=== PATIENT | female | born 1960 | race Caucasian/White ===

== ENCOUNTER 2019-01-17 01:55 | Emergency (ER) | payer OTHER ==
[~2019-01-17] VITALS: Ht 162.6 cm; Wt 60.0 kg
[2019-01-17 02:02] VITALS: Ht 162.6 cm; Wt 60.0 kg
[2019-01-17 07:13] VITALS: BP 99/63; PULSE 66; RESP 17
--- NOTE | 2019-01-19 15:05 | ERD ---
ER Documentation Chief Complaint Chief Complaint jaundice worsening over past week. dx'd cirrosis 4wks ago. HPI This is a 58-year-old female with no significant past medical history brought in by her children for worsening jaundice and confusion. Patient was diagnosed with cirrhosis about 4 weeks ago. Her jaundice and symptoms have progressively and rapidly worsened over the past few weeks. They were seen by a GI doctor outpatient, Dr. Quinteros, who told him to go to [facility] ER if anything were to change. They noticed that there mom was a little more confused today than usual which is why they came to the emergency room. Patient currently states that she feels "tired" but does not have any other complaints. She denies any headache, vision disturbance, chest pain, shortness of breath, abdominal pain, dysuria. No hematochezia or melena. No nausea or vomiting. She does not take lactulose but was recently started on prednisone 2 days ago, for which the reason is unclear. ROS All systems reviewed and are negative except as per history of present illness. Medications Home Meds Reported Medications Furosemide* (Furosemide*) 40 Mg Tablet, 40 MG PO DAILY, TAB 01/19/19 Pantoprazole* (Pantoprazole*) 40 Mg Tablet.dr, 40 MG PO DAILY for 30 Days, #30 take 1 tablet by mouth once daily 01/19/19 Propranolol Hcl* (Propranolol Hcl*) 20 Mg Tablet, 20 MG PO DAILY for 30 Days, #60 take 1/2 tablet by mouth twice a day 01/19/19 Spironolactone* (Aldactone*) 25 Mg Tablet, 50 MG PO BID for 30 Days, #120 take 2 tablets by mouth twice a day 01/19/19 Prednisone* (Prednisone*) 20 Mg Tab, 40 MG PO DAILY for 30 Days, #60 take 2 tablets by mouth once daily 01/19/19 Allergies Allergies: Coded Allergies: Penicillins (Unverified Allergy, Unknown, 01/19/19) latex (Unverified Allergy, Unknown, 01/19/19) PMhx/Soc Medical and Surgical Hx: pt denies Surgical Hx Hx Miscellaneous Medical Probl: Yes (Cirrhosis of the liver) Hx Alcohol Use: Yes Hx Substance Use: No Hx Tobacco Use: No Smoking Status: Never smoker FmHx Family History: No diabetes Physical Exam Vitals Vital Signs Date Temp Pulse Resp B/P (MAP) Pulse Ox O2 O2 Flow FiO2 Time Delivery Rate 01/17/19 97.9 66 17 99/63 (75) 99 Room Air 07:13 01/17/19 64 17 107/64 99 Room Air 05:33 (78) 01/17/19 57 16 111/70 100 Room Air 03:57 (84) 01/17/19 97.9 65 18 113/72 99 02:02 (86) 01/17/19 57 15 113/72 100 Room Air 02:01 (86) Physical Exam Const: No acute distress, appears jaundiced, awake and alert Head: Atraumatic Eyes: Scleral icterus. PERRLA, EOMI ENT: Normal External Ears, Nose and Mouth. Neck: Full range of motion. No meningismus. No JVD Resp: Clear to auscultation bilaterally Cardio: Regular rate and rhythm, no murmurs Abd: Soft, distended with ascites. Nontender to palpation in all 4 quadrants. Normal bowel sounds Skin: Jaundiced. No petechiae or rashes Back: No midline or flank tenderness Ext: No cyanosis, or edema Neur: Awake and alert, oriented x3, normal speech, cranial nerves intact, strength and sensations intact in all 4 extremities Psych: Normal Mood and flat affect Result Diagram: 01/17/19 0300 01/17/19 0259 Results 24 hrs Laboratory Tests Test 01/17/19 02:59 01/17/19 03:00 01/17/19 04:13 Sodium Level 131 mmol/L Potassium Level 3.5 mmol/L Chloride Level 95 mmol/L Carbon Dioxide Level 24 mmol/L Anion Gap 12 Blood Urea Nitrogen 38 mg/dl Creatinine 1.25 mg/dl Est Glomerular Filtrat 44 mL/min Rate mL/min Glucose Level 122 mg/dl Calcium Level 9.6 mg/dl Total Bilirubin 12.2 mg/dl Direct Bilirubin 9.30 mg/dl Indirect Bilirubin 2.9 mg/dl Aspartate Amino Transf (AST/SGOT) 119 IU/L Alanine 32 IU/L Aminotransferase (ALT/SGPT) Alkaline Phosphatase 256 IU/L Total Protein 7.3 g/dl Albumin 3.1 g/dl Globulin 4.20 g/dl Albumin/Globulin Ratio 0.73 Lipase 704 U/L White Blood Count 24.1 10^3/ul Red Blood Count 4.10 10^6/ul Hemoglobin 13.8 g/dl Hematocrit 38.7 % Mean Corpuscular Volume 94.4 fl Mean Corpuscular Hemoglobin 33.7 pg Mean Corpuscular 35.7 g/dl Hemoglobin Concent Red Cell Distribution Width 14.8 % Platelet Count 272 10^3/UL Mean Platelet Volume 10.1 fl Immature Granulocytes % 1.600 % Neutrophils % 89.7 % Lymphocytes % 5.3 % Monocytes % 3.2 % Eosinophils % 0.0 % Basophils % 0.2 % Nucleated Red Blood Cells % 0.0 /100WBC Immature Granulocytes # 0.380 10^3/ul Neutrophils # 21.7 10^3/ul Lymphocytes # 1.3 10^3/ul Monocytes # 0.8 10^3/ul Eosinophils # 0.0 10^3/ul Basophils # 0.0 10^3/ul Nucleated Red Blood Cells # 0.0 10^3/ul Ammonia < 9 umol/l Urine Color ZAY Urine Clarity CLEAR Urine pH 6.0 Urine Specific [place] 1.014 Urine Ketones NEGATIVE mg/dL Urine Nitrite NEGATIVE mg/dL Urine Bilirubin 2+ mg/dL Urine Urobilinogen 2+ mg/dL Urine Leukocyte Esterase NEGATIVE Shant/ul Urine Hemoglobin NEGATIVE mg/dL Urine Glucose NEGATIVE mg/dL Urine Total Protein NEGATIVE mg/dl Procedures/MDM EMERGENT LABS AND DIAGNOSTIC STUDIES: Lab Results above were reviewed and interpreted by me. CBC: Leukocytosis, unclear etiology, may be secondary to infection versus steroid response. No thrombocytopenia or anemia CMP: Elevated BUN and creatinine, likely secondary to renal insufficiency of unknown chronicity. Evidence of liver disease. No evidence of electrolyte abnormality, renal failure, hypoglycemia Lipase: Slightly elevated, not consistent with pancreatitis Troponin within normal limits, not indicative of cardiac ischemia UA: no evidence of infection Initial Nursing notes reviewed. Previous Medical Records requested via the Electronic Health Record. EMERGENCY DEPARTMENT COURSE / MEDICAL DECISION MAKING: Patient is presenting with complaints of confusion that started today and worsening jaundice. Her vitals were all within normal limits upon arrival. She was afebrile with no signs of sepsis. There are no signs of acute surgical abdomen on exam. I doubt stroke or intracranial hemorrhage. I doubt meningitis or encephalitis. I suspected hepatic encephalopathy, however her ammonia level is low, but this still remains a possibility. There is no infectious source found on exam or workup. She was noted to have leukocytosis of unclear etiology. I explained to the patient and her family that this may be secondary to her recent steroid use versus an occult infection. The rest of her labs are consistent with her known cirrhosis. Her bilirubin is actually decreasing as her family reports her bilirubin last week was in the 30s. I suspect that she was probably started on the steroids to see if this would help with her c irrhosis, as the family states that they think it is due to alcohol but they cannot be sure until they do a biopsy. I offered the patient admission to the hospital for observation and further evaluation. However the patient would really like to go home as she feels well. Per her family at bedside, she has not been acting confused while she has been here and has been acting her normal self. I instructed them to return to the ER if they notice any concerning symptoms and their mother. I also recommended follow-up with her GI doctor first thing tomorrow morning. I provided them with a copy of the results from today and recommended the white blood cell count be trended outpatient. Strict return precautions given. Patient was discharged in stable condition. Patient's blood pressure was elevated (>120/80) but appears stable without evidence of hypertensive emergency or urgency. The patient was counseled about the risks of hypertension and urged to pursue outpatient monitoring and therapy within a week with their primary care physician. Departure Diagnosis: Primary Impression: Jaundice Additional Impressions: Confusion Renal insufficiency Cirrhosis Hepatic cirrhosis type: unspecified hepatic cirrhosis Ascites presence: with ascites Qualified Codes: K74.60 - Unspecified cirrhosis of liver; R18.8 - Other ascites Leukocytosis, unspecified Condition: Stable Patient Instructions: Jaundice (Adult), Confusion Additional Instructions: Follow-up with your psychiatric secretary on Friday. If any of your symptoms worsen, return to the ER immediately. KARISSA WORTHY MD Jan 19, 2019 15:05
== END 2019-01-17 07:13 | disposition home or self-care (01) ==
LOC: E/R 01:55
DX: R41.0 Disorientation, unspecified (principal); N28.9 Disorder of kidney and ureter, unspecified; D72.829 Elevated white blood cell count, unspecified; K74.60 Unspecified cirrhosis of liver
CPT/HCPCS: 36415; 80053; 81003; 82140; 83690; 85025; 99283

== ENCOUNTER 2019-01-18 21:56 | Observation (INO) | payer OTHER ==
[~2019-01-18] VITALS: Ht 165.1 cm; Wt 54.7 kg
[2019-01-19] VITALS (8 sets, daily range): BP systolic 95–136; BP diastolic 55–66; PULSE 65–81; RESP 16–20; Ht 165.1 cm; Wt 54.7 kg
[2019-01-19] MEDS ORDERED: ONDANSETRON 4 MG INJ IV PRN (02:00)
--- NOTE | 2019-01-19 02:28 | ERD ---
ER Documentation Chief Complaint Chief Complaint bib self, cc: cirrosis of liver, jaundice, needs tap HPI This is a 58-year-old female here with complaints of cirrhosis of liver and increase in his abdominal girth over the past 3-4 days. Patient has history of cirrhosis. No nausea no vomiting no fevers no chest pain ROS All systems reviewed and are negative except as per history of present illness. Allergies Allergies: Coded Allergies: Penicillins (Verified Allergy, Unknown, 01/17/19) latex (Verified Allergy, Unknown, 01/17/19) PMhx/Soc History of Surgery: No Anesthesia Reaction: No Hx Neurological Disorder: No Hx Respiratory Disorders: No Hx Cardiac Disorders: No Hx Psychiatric Problems: No Hx Miscellaneous Medical Probl: Yes (CIRRHOSIS) Hx Alcohol Use: No Hx Substance Use: No Hx Tobacco Use: No Smoking Status: Never smoker Physical Exam Vitals Vital Signs Date Temp Pulse Resp B/P (MAP) Pulse Ox O2 O2 Flow FiO2 Time Delivery Rate 01/19/19 97.0 62 14 134/72 100 2.0 00:19 (92) 01/18/19 97.0 68 19 120/56 100 22:10 (77) Physical Exam Const: No acute distress Head: Atraumatic Eyes: Normal Conjunctiva ENT: Normal External Ears, Nose and Mouth. Neck: Full range of motion. No meningismus. Resp: Clear to auscultation bilaterally Cardio: Regular rate and rhythm, no murmurs Abd: Soft, non tender, non distended. Normal bowel sounds Skin: No petechiae or rashes Back: No midline or flank tenderness Ext: No cyanosis, or edema Neur: Awake and alert Psych: Normal Mood and Affect Result Diagram: 01/19/19 0030 01/19/19 0030 Results 24 hrs Laboratory Tests Test 01/19/19 00:30 White Blood Count 27.6 10^3/ul Red Blood Count 3.72 10^6/ul Hemoglobin 12.7 g/dl Hematocrit 36.4 % Mean Corpuscular Volume 97.8 fl Mean Corpuscular Hemoglobin 34.1 pg Mean Corpuscular Hemoglobin Concent 34.9 g/dl Red Cell Distribution Width 15.3 % Platelet Count 266 10^3/UL Mean Platelet Volume 10.4 fl Immature Granulocytes % 1.900 % Neutrophils % % Segmented Neutrophils % (Manual) 91 % Band Neutrophils % (Manual) 1 % Lymphocytes % % Lymphocytes % (Manual) 4 % Monocytes % % Monocytes % (Manual) 2 % Eosinophils % % Basophils % % Basophils % (Manual) 1 % Metamyelocytes % (manual) 1 % Nucleated Red Blood Cells % 0.0 /100WBC Immature Granulocytes # 0.530 10^3/ul Neutrophils # 10^3/ul Neutrophils # (Manual) 25.2 10^3/ul Band Neutrophils # 0.2 10^3/ul Lymphocytes (Manual) 1.1 10^3/ul Lymphocytes # 10^3/ul Monocytes # 10^3/ul Monocytes # (Manual) 0.5 10^3/ul Eosinophils # 10^3/ul Basophils # 10^3/ul Basophils # (Manual) 0.2 10^3/ul Metamyelocytes # 0.2 10^3/ul Nucleated Red Blood Cells # 10^3/ul Platelet Estimate NORMAL Poikilocytosis 1+ Anisocytosis 3+ Macrocytosis 3+ Prothrombin Time 15.8 Sec Prothrombin Time Ratio 1.2 INR International Normalized Ratio 1.25 Activated Partial Thromboplast Time 31.1 Sec Sodium Level 132 mmol/L Potassium Level 3.6 mmol/L Chloride Level 95 mmol/L Carbon Dioxide Level 22 mmol/L Anion Gap 15 Blood Urea Nitrogen 36 mg/dl Creatinine 1.31 mg/dl Est Glomerular Filtrat Rate mL/min 42 mL/min Glucose Level 137 mg/dl Calcium Level 9.2 mg/dl Total Bilirubin 9.8 mg/dl Direct Bilirubin 7.20 mg/dl Indirect Bilirubin 2.6 mg/dl Aspartate Amino Transf (AST/SGOT) 101 IU/L Alanine Aminotransferase (ALT/SGPT) 44 IU/L Alkaline Phosphatase 266 IU/L Total Protein 7.5 g/dl Albumin 3.2 g/dl Globulin 4.30 g/dl Albumin/Globulin Ratio 0.74 Lipase 1057 U/L Current Medications Medications Dose Sig/Jerrica Start Time Status Last (Trade) Ordered Route PRN Stop Time Admin Dose Reason Admin Lactulose 20 gm TID PO 01/19/19 (Enulose) 09:00 Ondansetron 4 mg Q6 PRN IV 01/19/19 HCl (Zofran NAUSEA 02:00 Inj) 50 mg ONCE ONCE 01/19/19 Spironolacton PO 02:30 01/19/19 e 02:31 (Aldactone) Furosemide 20 mg ONCE ONCE 01/19/19 (Lasix) IV 02:30 01/19/19 02:31 500 mg ONCE ONCE 01/19/19 UNV Levofloxacin PO 02:30 01/19/19 (Levaquin) 02:31 Procedures/MDM Medical decision makin-year-old female comes in here with increasing abdominal girth necessitating a likely paracentesis. Patient will be admitted to Dr. Fitzpatrick of [facility] who will coordinate care. Departure Diagnosis: Primary Impression: Ascites Ascites type: due to alcoholic cirrhosis Qualified Codes: K70.31 - Alcoholic cirrhosis of liver with ascites Condition: Serious ANGEL WHITESIDE Jan 19, 2019 02:28
[2019-01-19] MEDS ORDERED: SPIRONOLACTONE 50 MG TAB PO ONE ×2 (02:30→05:00)
[2019-01-19] MEDS ORDERED: LEVOFLOXACIN 500 MG TAB PO ONE (02:30)
[2019-01-19] MEDS ORDERED: FUROSEMIDE 20 MG INJ IV ONE (02:30)
[2019-01-19] MEDS ORDERED: PROP20TA4 PO (02:53)
[2019-01-19] MEDS ORDERED: SPIR25TA PO (02:53)
[2019-01-19] MEDS ORDERED: PRED20TA PO (02:53)
[2019-01-19] MEDS ORDERED: PANT40TA4 PO (02:53)
[2019-01-19] MEDS ORDERED: FURO40TA4 PO (02:57)
[2019-01-19] MEDS ORDERED: LIDOCAINE 1% (MPF) 5 ML VIAL ONE (08:28)
[2019-01-19] MEDS ORDERED: PROPRANOLOL 20 MG TAB PO SCH ×2 (09:00→10:30)
[2019-01-19] MEDS ORDERED: PANTOPRAZOLE (EC) 40 MG TAB PO SCH (09:30)
--- NOTE | 2019-01-19 10:05 | HP ---
DATE OF ADMISSION: 01/19/2019 CHIEF COMPLAINT: Recurrent ascites. HISTORY OF PRESENT ILLNESS: A 58-year-old female with recently diagnosed cirrhosis and ascites, pres ented to emergency room with complaint of recurrent ascites and abdominal discomfort. The patient de nies any abdominal pain. Her symptoms were mainly related to recurrent ascites. She denies fever, c hills, nausea or vomiting. Patient was seen in the emergency room 2 days prior to admission. Initia l evaluation revealed lipase of 1072. Total bilirubin was 9.3. The patient was noted to have large ascites. She underwent paracentesis and 4.6 liters of fluid was retrieved. White blood cell count on admission was 27.6, repeat white blood cell count the following morning was 22.8. Patient admits to drinking 1 to 2 glasses of wine on a daily basis for several years. PAST MEDICAL HISTORY: 1. Alcoholic liver disease. 2. Ascites. PAST SURGICAL HISTORY: Status post breast implants. MEDICATIONS PRIOR TO ADMISSION: 1. Propranolol 20 mg daily. 2. Spironolactone 25 mg b.i.d. 3. Lasix 40 mg daily. 4. Protonix 40 mg daily. 5. Prednisone 40 mg daily. PHYSICAL EXAMINATION: GENERAL: Well-developed, well-nourished, thin female who is in no apparent distress. VITAL SIGNS: Stable. She is afebrile. HEENT: Extraocular muscles intact. Pupils equal and reactive to light bilaterally. Sclerae icteric . Oropharynx is clear. LUNGS: Clear to auscultation bilaterally. CARDIAC: Regular rate and rhythm. No murmurs, or gallops. ABDOMEN: Soft, mildly distended, nontender, normoactive bowel sounds. EXTREMITIES: No clubbing, cyanosis, or edema. NEUROLOGICAL: Grossly nonfocal. ASSESSMENT: 1. A 58-year-old female with recurrent ascites. 2. Status post paracentesis with removal of 4.6 liters of fluid. 3. Elevated lipase, rule out pancreatitis. 4. Rule out spontaneous bacterial peritonitis. 5. Hypokalemia. PLAN: 1. Place in Med/Surg observation. Resume home medications including diuretics. 2. Check peritoneal fluid for Gram stain, cell count and LVH. 3. GI consultation was requested. Condition and prognosis were discussed with the patient's children. All of their questions were answ ered to the best of my knowledge. Dictated By: RACHEL BASS/CHESTER Conf#: [id number] [facility]#: [id number] CC: BRYNN BEAVER;*EndCC*
[2019-01-19] MEDS: FUROSEMIDE 40 MG TAB PO SCH (10:25)
[2019-01-19] MEDS: PANTOPRAZOLE (EC) 40 MG TAB PO SCH (10:25)
[2019-01-19] MEDS: LACTULOSE 30ML CUP PO SCH ×3 (10:25→20:59)
[2019-01-19] MEDS: SPIRONOLACTONE 25 MG TAB PO SCH ×2 (10:30→21:00)
--- NOTE | 2019-01-19 11:05 | CONS ---
Assessment/Plan Assessment/Plan Hospital Course (Demo Recall) Summary Assessment and Plan: Assessment: Direct hyperbilirubinemia Elevated LFTS with AST>ALT Alcoholic liver cirrhosis with ascites -Recently dx -Last alcoholic drink 6 weeks ago- Leukocytosis -R/o SBP vbs other Elevated lipase Renal insufficiency Plan: Keep NPO today- will also order amylase MRCP to r/o CBD obstruction S/p paracentesis- to R/o SBP Serology negative for Hepatitis Continue current medication regimen- titrate Bm to 3-4 in 24/hr Monitor labs Patient seen in collaboration with Dr. Rivera CC: MAGNOLIA RIVERA ; Consultation Date/Type/Reason Admit Date/Time Jan 19, 2019 at 01:44 Date of Consultation: Jan 19, 2019 Type of Consult GI Reason for Consultation ALD, with direct hyperbilirubinemia Elevated lipase Date/Time of Note DATE: 01/19/19 TIME: 10:20 Hx of Present Illness This a 58-year-old female with recently diagnosed liver cirrhosis secondary to alcohol use that presented to the hospital with complaints of progressive abdominal girth and jaundice which she is status post paracentesis with fluid negative for SBP, Labs note leukocytosis, normocytic anemia, normal platelet function, and mildly elevated INR of 1.25, direct hyperbilirubinemia, and elevated LFTs AST>ALT. A chest x-ray was obtained and is negative for cardiopulmonary disease is negative for UTI. WE will plan to order MRCP to r/o CBD, will also assess amylase, as lipase is elevated in the setting of mildly elevated CR. Currently she denies any abd pain, nausea or vomiting. Her last alcoholic drink was about 6 weeks ago. Pt state she is under the care of Dr. Aldair BRENNAN. Review of Systems: A 12 system, review was conducted and is negative except as noted in the HPI or here. Past Medical History Home Meds Reported Medications Furosemide* (Furosemide*) 40 Mg Tablet, 40 MG PO DAILY, TAB 01/19/19 Pantoprazole* (Pantoprazole*) 40 Mg Tablet., 40 MG PO DAILY for 30 Days, #30 take 1 tablet by mouth once daily 01/19/19 Propranolol Hcl* (Propranolol Hcl*) 20 Mg Tablet, 20 MG PO DAILY for 30 Days, #60 take 1/2 tablet by mouth twice a day 01/19/19 Spironolactone* (Aldactone*) 25 Mg Tablet, 50 MG PO BID for 30 Days, #120 take 2 tablets by mouth twice a day 01/19/19 Prednisone* (Prednisone*) 20 Mg Tab, 40 MG PO DAILY for 30 Days, #60 take 2 tablets by mouth once daily 01/19/19 Medications Current Medications Lactulose (Enulose) 20 gm TID PO ; Start 01/19/19 at 09:00 Ondansetron HCl (Zofran Inj) 4 mg Q6 PRN IV NAUSEA; Start 01/19/19 at 02:00 Pantoprazole (Protonix Tab) 40 mg DAILY PO ; Start 01/19/19 at 09:00 Potassium Chloride (Klor-Con 10) 30 meq BID PO ; Start 01/19/19 at 10:30; Stop 01/20/19 at 23:59 Furosemide (Lasix) 40 mg DAILY PO ; Start 01/19/19 at 09:30 Spironolactone (Aldactone) 50 mg BID PO ; Start 01/19/19 at 10:30 Propranolol HCl (Inderal) 20 mg BID PO ; Start 01/19/19 at 12:00 Allergies: Coded Allergies: Penicillins (Unverified Allergy, Unknown, 01/19/19) latex (Unverified Allergy, Unknown, 01/19/19) Social History Smoking Status: Never smoker Exam/Review of Systems Exam Vitals Vital Signs Date Temp Pulse Resp B/P (MAP) Pulse Ox O2 O2 Flow FiO2 Time Delivery Rate 01/19/19 65 18 112/55 100 Nasal 2.0 08:30 (74) Cannula 01/19/19 97.5 07:28 Exam PHYSICAL EXAMINATION: GENERAL: Jaundice, alert & oriented x 3, in no acute distress SKIN: No lesions EYES: Pupils equal reactive to light, no discharge. EARS/NOSE AND THROAT: Ears normal, nose normal NECK: Supple, no masses CHEST: Inspection within normal limits. CARDIOVASCULAR: Heart: Regular rate and rhythm RESPIRATORY: Lungs clear to auscultation GASTROINTESTINAL AND LIVER: Abdomen: Soft, non tenderness, + distended, no hernias, no masses, no organomegaly, + ascites, no guarding, no rebound tenderness, normoactive bowel sounds. Rectal: Deferred. Results Result Diagram: 01/19/19 0911 01/19/19 0438 Results 24hrs Laboratory Tests Test 01/19/19 00:30 01/19/19 01:00 01/19/19 04:38 01/19/19 09:11 White Blood Count 27.6 H 22.8 H 21.7 H Red Blood Count 3.72 L 3.63 L 3.37 L Hemoglobin 12.7 12.4 11.7 L Hematocrit 36.4 L 35.3 L 32.7 L Mean Corpuscular Volume 97.8 97.2 97.0 Mean Corpuscular 34.1 H 34.2 H 34.7 H Hemoglobin Mean Corpuscular 34.9 35.1 35.8 Hemoglobin Concent Red Cell Distribution 15.3 H 15.1 H 15.1 H Width Platelet Count 266 238 205 Mean Platelet Volume 10.4 10.5 H 10.0 Immature Granulocytes % 1.900 H 1.400 H 1.400 H Neutrophils % 87.1 H 84.9 H Segmented Neutrophils 91 H % (Manual) Band Neutrophils % 1 (Manual) Lymphocytes % 6.9 L 8.5 L Lymphocytes % (Manual) 4 L Monocytes % 4.2 4.8 Monocytes % (Manual) 2 Eosinophils % 0.0 0.1 Basophils % 0.4 0.3 Basophils % (Manual) 1 Metamyelocytes % 1 H (manual) Nucleated Red Blood 0.0 0.0 0.0 Cells % Immature Granulocytes # 0.530 H 0.310 H 0.300 H Neutrophils # 19.9 H 18.4 H Neutrophils # (Manual) 25.2 H Band Neutrophils # 0.2 Lymphocytes (Manual) 1.1 Lymphocytes # 1.6 1.8 Monocytes # 1.0 H 1.0 H Monocytes # (Manual) 0.5 Eosinophils # 0.0 0.0 Basophils # 0.1 0.1 Basophils # (Manual) 0.2 H Metamyelocytes # 0.2 H Nucleated Red Blood 0.0 0.0 Cells # Platelet Estimate NORMAL Poikilocytosis 1+ Anisocytosis 3+ Macrocytosis 3+ Prothrombin Time 15.8 H Prothrombin Time Ratio 1.2 INR International 1.25 Normalized Ratio Activated 31.1 Partial Thromboplast Time Sodium Level 132 L 134 L Potassium Level 3.6 3.1 L Chloride Level 95 L 94 L Carbon Dioxide Level 22 25 Anion Gap 15 H 15 H Blood Urea Nitrogen 36 H 35 H Creatinine 1.31 H 1.23 H Est Glomerular Filtrat 42 L 45 L Rate mL/min Glucose Level 137 95 # Calcium Level 9.2 9.3 Total Bilirubin 9.8 #H 9.3 H Direct Bilirubin 7.20 H 6.60 H Indirect Bilirubin 2.6 H 2.7 H Aspartate Amino 101 H 95 H Transf (AST/SGOT) Alanine 44 44 Aminotransferase (ALT/SG PT) Alkaline Phosphatase 266 H 252 H Total Protein 7.5 7.2 Albumin 3.2 L 3.1 L Globulin 4.30 H Albumin/Globulin Ratio 0.74 Lipase 1057 H 1072 H Hepatitis B Surface NEGATIVE Antigen Hepatitis B Core NEGATIVE Total Antibody Hepatitis C Antibody NEGATIVE Medications Medication Current Medications Lactulose (Enulose) 20 gm TID PO ; Start 01/19/19 at 09:00 Ondansetron HCl (Zofran Inj) 4 mg Q6 PRN IV NAUSEA; Start 01/19/19 at 02:00 Pantoprazole (Protonix Tab) 40 mg DAILY PO ; Start 01/19/19 at 09:00 Potassium Chloride (Klor-Con 10) 30 meq BID PO ; Start 01/19/19 at 10:30; Stop 01/20/19 at 23:59 Furosemide (Lasix) 40 mg DAILY PO ; Start 01/19/19 at 09:30 Spironolactone (Aldactone) 50 mg BID PO ; Start 01/19/19 at 10:30 Propranolol HCl (Inderal) 20 mg BID PO ; Start 01/19/19 at 12:00 GARY INMAN Jan 19, 2019 10:30
[2019-01-19] MEDS: PROPRANOLOL 20 MG TAB PO SCH ×2 (12:00→21:00)
[2019-01-19] MEDS: POTASSIUM CHLORIDE (SR) 10 MEQ TAB PO SCH ×2 (12:07→21:02)
[2019-01-20 02:00] VITALS: BP 101/58; PULSE 80; RESP 18
[2019-01-20 07:49] VITALS: BP 99/60; PULSE 87; RESP 18
[2019-01-20] MEDS: POTASSIUM CHLORIDE (SR) 10 MEQ TAB PO SCH (08:12)
[2019-01-20] MEDS: LACTULOSE 30ML CUP PO SCH ×2 (08:12→13:00)
[2019-01-20] MEDS: PANTOPRAZOLE (EC) 40 MG TAB PO SCH (08:13)
[2019-01-20 09:52] VITALS: BP 111/53; PULSE 99; RESP 16
[2019-01-20] MEDS: SPIRONOLACTONE 25 MG TAB PO SCH (10:00)
[2019-01-20] MEDS: FUROSEMIDE 40 MG TAB PO SCH (10:00)
[2019-01-20] MEDS: PROPRANOLOL 20 MG TAB PO SCH (10:00)
[2019-01-20] MEDS ORDERED: LEVO500T10 PO (10:40)
[2019-01-20] MEDS ORDERED: LACT20SO2 PO (10:40)
--- NOTE | 2019-01-20 10:41 | PDOCDIS ---
Discharge Instructions CONDITION [id number] Patient Condition: [id number] Good HOME CARE INSTRUCTIONS: [id number] Diet Instructions: [id number] FOLLOW UP/APPOINTMENTS Follow-up Plan pcp [address] Quinteros 1 week RACHEL WIGGINS MD Jan 20, 2019 10:41
--- NOTE | 2019-01-20 13:44 | PN ---
Date/Time of Note Date/Time of Note DATE: 01/20/19 TIME: 13:40 Assessment/Plan VTE Prophylaxis Risk score (from Ns)>0 risk: 2 SCD applied (from Ns): No SCD contraindicated: other (scds) Pharmacological prophylaxis: other (scds) Lines/Catheters IV C[facility]ter Type (from [facility]): Saline Lock Assessment/Plan Hospital Course Summary Assessment and Plan: Assessment: Direct hyperbilirubinemia Elevated LFTS with AST>ALT Alcoholic liver cirrhosis with ascites -Recently dx -Last alcoholic drink 6 weeks ago- Leukocytosis -R/o SBP vs other -Paracentesis neg for SBP, CXR - neg -Likely 2/2 to recent steroid use Elevated lipase- trending down -MRCP shows unremarkable pancreas Renal insufficiency Plan: Ok to d/c from GI point of view Pt to f/u with her GI physician Dr. Quinteros 1 week Patient seen in collaboration with Dr. Landon/Kvng Subjective: Course reviewed with nursing staff Patient interviewed and examined All labs, imaging and other results reviewed The patient feels well no c/o abd pain Nausea or vomiting. Pt ready to go home PHYSICAL EXAMINATION: GENERAL: Jaundice, alert & oriented x 3, in no acute distress SKIN: No lesions EYES: Pupils equal reactive to light, no discharge. EARS/NOSE AND THROAT: Ears normal, nose normal NECK: Supple, no masses CHEST: Inspection within normal limits. CARDIOVASCULAR: Heart: Regular rate and rhythm RESPIRATORY: Lungs clear to auscultation GASTROINTESTINAL AND LIVER: Abdomen: Soft, non tenderness, + distended, no hernias, no masses, no organomegaly, + ascites, no guarding, no rebound tenderness, normoactive bowel sounds. Rectal: Deferred. Result Diagram: 01/20/19 0439 01/20/19 0439 Results 24hrs Laboratory Tests Test 01/20/19 04:39 White Blood Count 20.8 H Red Blood Count 3.59 L Hemoglobin 12.2 Hematocrit 35.1 L Mean Corpuscular Volume 97.8 Mean Corpuscular Hemoglobin 34.0 H Mean Corpuscular Hemoglobin Concent 34.8 Red Cell Distribution Width 15.5 H Platelet Count 207 Mean Platelet Volume 10.4 Immature Granulocytes % 1.300 H Neutrophils % 87.7 H Lymphocytes % 5.7 L Monocytes % 4.8 Eosinophils % 0.1 Basophils % 0.4 Nucleated Red Blood Cells % 0.0 Immature Granulocytes # 0.260 H Neutrophils # 18.2 H Lymphocytes # 1.2 Monocytes # 1.0 H Eosinophils # 0.0 Basophils # 0.1 Nucleated Red Blood Cells # 0.0 Sodium Level 139 Potassium Level 4.2 Chloride Level 105 # Carbon Dioxide Level 23 Anion Gap 11 Blood Urea Nitrogen 33 H Creatinine 1.24 H Est Glomerular Filtrat Rate mL/min 45 L Glucose Level 83 Calcium Level 9.2 Total Bilirubin 9.1 H Direct Bilirubin 6.70 H Indirect Bilirubin 2.4 H Aspartate Amino Transf (AST/SGOT) 130 H Alanine Aminotransferase (ALT/SGPT) 49 Alkaline Phosphatase 232 H Total Protein 6.0 #L Albumin 2.6 L Lipase 575 H Exam/Review of Systems Exam Vitals Vital Signs Date Temp Pulse Resp B/P (MAP) Pulse Ox O2 O2 Flow FiO2 Time Delivery Rate 01/20/19 99 16 111/53 09:52 (72) 01/20/19 97.9 92 Room Air 07:49 01/20/19 2.0 02:00 Intake and Output 01/19/19 01/19/19 01/20/19 1515:00 23:00 07:00 OutputOutput Total 4600 ml BalanceBalance -4600 ml Results Results 24hrs Laboratory Tests Test 01/20/19 04:39 White Blood Count 20.8 H Red Blood Count 3.59 L Hemoglobin 12.2 Hematocrit 35.1 L Mean Corpuscular Volume 97.8 Mean Corpuscular Hemoglobin 34.0 H Mean Corpuscular Hemoglobin Concent 34.8 Red Cell Distribution Width 15.5 H Platelet Count 207 Mean Platelet Volume 10.4 Immature Granulocytes % 1.300 H Neutrophils % 87.7 H Lymphocytes % 5.7 L Monocytes % 4.8 Eosinophils % 0.1 Basophils % 0.4 Nucleated Red Blood Cells % 0.0 Immature Granulocytes # 0.260 H Neutrophils # 18.2 H Lymphocytes # 1.2 Monocytes # 1.0 H Eosinophils # 0.0 Basophils # 0.1 Nucleated Red Blood Cells # 0.0 Sodium Level 139 Potassium Level 4.2 Chloride Level 105 # Carbon Dioxide Level 23 Anion Gap 11 Blood Urea Nitrogen 33 H Creatinine 1.24 H Est Glomerular Filtrat Rate mL/min 45 L Glucose Level 83 Calcium Level 9.2 Total Bilirubin 9.1 H Direct Bilirubin 6.70 H Indirect Bilirubin 2.4 H Aspartate Amino Transf (AST/SGOT) 130 H Alanine Aminotransferase (ALT/SGPT) 49 Alkaline Phosphatase 232 H Total Protein 6.0 #L Albumin 2.6 L Lipase 575 H Medications Medication Current Medications Lactulose (Enulose) 20 gm TID PO Last administered on 01/20/19 08:12; Admin Dose 20 GM; Start 01/19/19 at 09:00 Ondansetron HCl (Zofran Inj) 4 mg Q6 PRN IV NAUSEA; Start 01/19/19 at 02:00 Pantoprazole (Protonix Tab) 40 mg DAILY PO Last administered on 01/20/19 08:13; Admin Dose 40 MG; Start 01/19/19 at 09:00 Potassium Chloride (Klor-Con 10) 30 meq BID PO Last administered on 01/20/19 08:12; Admin Dose 30 MEQ; Start 01/19/19 at 10:30; Stop 01/20/19 at 23:59 Furosemide (Lasix) 40 mg DAILY PO Last administered on 01/20/19 10:00; Admin Dose 40 MG; Start 01/19/19 at 09:30 Spironolactone (Aldactone) 50 mg BID PO Last administered on 01/20/19 10:00; Ad min Dose 50 MG; Start 01/19/19 at 10:30 Propranolol HCl (Inderal) 20 mg BID PO Last administered on 01/20/19 10:00; Admin Dose 20 MG; Start 01/19/19 at 12:00 GARY INMAN Jan 20, 2019 13:44
== END 2019-01-20 14:35 | disposition home health service (06) ==
LOC: E/R 21:56 → 2NE 01-19 01:44 → EDBEDREQSVC 01-19 02:14
PROVIDERS: ADMIT Internal Medicine; ATTEND Internal Medicine
DX: K70.31 Alcoholic cirrhosis of liver with ascites (principal); R74.8 Abnormal levels of other serum enzymes; E87.6 Hypokalemia; N28.9 Disorder of kidney and ureter, unspecified
CPT/HCPCS: 36415; 49083; 71045; 74181; 76700; 80048; 80053; 80076; 82042; 82150; 83615; 83690; 84157; 85025; 85610; 85730; 86704; 86709; 86803; 87070; 87081; 87102; 87116; 87340; 88104; 88305; 89051; 99285; G0378; J1940; J2405

== ENCOUNTER 2019-01-28 16:23 | Inpatient (IN) | payer OTHER ==
[~2019-01-28] VITALS: Ht 165.1 cm; Wt 51.0 kg
[~2019-01-28 16:23] MED LIST: FURO40TA4 PO; LACT20SO2 PO; LEVO500T10 PO; PANT40TA4 PO; PRED20TA PO; PROP20TA4 PO; SPIR25TA PO
--- NOTE | 2019-01-28 16:54 | ERD ---
ER Documentation Chief Complaint Chief Complaint WEAKNESS AND ALOC TODAY HPI 58-year-old female with a history of alcoholic liver cirrhosis, hepatic encephalopathy and recurrent ascites presents to the ED with family for evaluation of generalized weakness and confusion. Patient was seen earlier this afternoon by gastroenterology, Dr. Quinteros and referred to the ED for further evaluation. History is supplemented by the patient's family who are at the bedside Patient is sometimes noncompliant with her lactulose. Denies heada giorgio, visual changes, focal weakness or numbness. No chest pain, palpitations or shortness of breath. Mild abdominal distention but no pain, nausea, vomiting, hematemesis, hematochezia or melena. No URI symptoms, cough or sputum production. No fevers or chills. ROS All systems reviewed and are negative except as per history of present illness. Medications Home Meds Active Scripts Lactulose* (Lactulose*) 20 Gm/30 Ml Solution, 20 GM PO QID for 30 Days, 3 Refills Prov:RACHEL WIGGINS MD 01/29/19 Reported Medications Lactulose* (Lactulose*) 10 Gm/15 Ml Solution, 30 ML PO QID, ML 01/28/19 Furosemide* (Furosemide*) 40 Mg Tablet, 40 MG PO DAILY, TAB 01/19/19 Spironolactone* (Aldactone*) 25 Mg Tablet, 50 MG PO BID for 30 Days, #120 take 2 tablets by mouth twice a day 01/19/19 Prednisone* (Prednisone*) 20 Mg Tab, 15 MG PO DAILY for 30 Days, #60 take 2 tablets by mouth once daily 01/19/19 Discontinued Reported Medications Pantoprazole* (Pantoprazole*) 40 Mg Tablet.dr, 40 MG PO DAILY for 30 Days, #30 take 1 tablet by mouth once daily 01/19/19 Propranolol Hcl* (Propranolol Hcl*) 20 Mg Tablet, 20 MG PO DAILY for 30 Days, #60 take 1/2 tablet by mouth twice a day 01/19/19 Discontinued Scripts Levofloxacin* (Levofloxacin*) 500 Mg Tablet, 500 MG PO DAILY for 5 Days, TAB Prov:RACHEL WIGGINS MD 01/20/19 Lactulose* (Lactulose*) 20 Gm/30 Ml Solution, 10 GM PO TID for 30 Days Prov:RACHEL WIGGINS MD 01/20/19 Allergies Allergies: Coded Allergies: Penicillins (Unverified Allergy, Unknown, 01/28/19) latex (Unverified Allergy, Unknown, 01/28/19) PMhx/Soc Reviewed in chart. As per HPI. History of Surgery: Yes (BREAST AUGMENTATION 2009) Anesthesia Reaction: No Hx Neurological Disorder: No Hx Respiratory Disorders: No Hx Cardiac Disorders: No Hx Psychiatric Problems: No Hx Miscellaneous Medical Probl: Yes (Liver cirrhosis, encephalopathy) Hx Alcohol Use: Yes Hx Substance Use: No Hx Tobacco Use: No FmHx No stroke or cancer. No family history relevant to presenting complaint Physical Exam Vitals Vital Signs Date Temp Pulse Resp B/P (MAP) Pulse Ox O2 O2 Flow FiO2 Time Delivery Rate 01/28/19 97.8 67 16 89/54 (66) 100 Room Air 19:10 01/28/19 88 20 94/64 (74) 97 Room Air 18:06 01/28/19 98.5 61 16 103/56 100 16:33 (72) Physical Exam Const: Moderate distress Head: Atraumatic Eyes: anicteric. Conjunctiva not injected. ENT: Normal External Ears, Nose and Mouth. Neck: Full range of motion. No meningismus. No JVD. Carotids 2+ bilateral without bruits. Resp: Breath sounds are mildly diminished at the bases but otherwise clear to auscultation bilaterally. No rales rhonchi or wheezes. Cardio: Regular rate and rhythm, no murmurs Abd: Soft, non tender, mild distention. Positive fluid wave. No rebound or guarding. Normal bowel sounds Skin: Spider hemangiomata. No rashes. Back: No midline or flank tenderness Ext: No cyanosis, or edema Neur: Sleepy but arousable. Oriented to person. Cranial nerves II through XII are grossly intact. Motor and sensory equal bilaterally. Psych: Patient does not appear anxious or depressed. Result Diagram: 01/29/19 0452 01/29/19 0452 Results 24 hrs Laboratory Tests Test 01/28/19 17:01 01/28/19 17:02 01/28/19 17:03 Bedside Glucose 138 mg/dL Ammonia 33 umol/l White Blood Count 19.6 10^3/ul Red Blood Count 3.72 10^6/ul Hemoglobin 12.6 g/dl Hematocrit 35.5 % Mean Corpuscular Volume 95.4 fl Mean Corpuscular Hemoglobin 33.9 pg Mean Corpuscular 35.5 g/dl Hemoglobin Concent Red Cell Distribution Width 15.3 % Platelet Count 202 10^3/UL Mean Platelet Volume 10.2 fl Immature Granulocytes % 1.400 % Neutrophils % 90.3 % Lymphocytes % 5.3 % Monocytes % 2.7 % Eosinophils % 0.0 % Basophils % 0.3 % Nucleated Red Blood Cells % 0.0 /100WBC Immature Granulocytes # 0.270 10^3/ul Neutrophils # 17.7 10^3/ul Lymphocytes # 1.0 10^3/ul Monocytes # 0.5 10^3/ul Eosinophils # 0.0 10^3/ul Basophils # 0.1 10^3/ul Nucleated Red Blood Cells # 0.0 10^3/ul Sodium Level 123 mmol/L Potassium Level 5.1 mmol/L Chloride Level 92 mmol/L Carbon Dioxide Level 18 mmol/L Anion Gap 13 Blood Urea Nitrogen 28 mg/dl Creatinine 1.09 mg/dl Est Glomerular Filtrat Rate mL/min 52 mL/min Glucose Level 128 mg/dl Calcium Level 8.8 mg/dl Total Bilirubin 7.7 mg/dl Direct Bilirubin 5.30 mg/dl Indirect Bilirubin 2.4 mg/dl Aspartate Amino Transf (AST/SGOT) 121 IU/L Alanine 67 IU/L Aminotransferase (ALT/SGPT) Alkaline Phosphatase 281 IU/L Total Protein 6.9 g/dl Albumin 3.0 g/dl Globulin 3.90 g/dl Albumin/Globulin Ratio 0.76 Procedures/MDM DOCUMENTS REVIEWED: ED nurse, prior ED, prior records MEDICAL DECISION MAKIN-year-old female with a history of alcoholic liver cirrhosis, hepatic encephalopathy and recurrent ascites presents to the ED with family for evaluation of generalized weakness and confusion. CBC remarkable for leukocytosis of 19.6 which is actually improved from 20.8 on 01/20/2018. No anemia or thrombocytopenia. Chemistry reveals elevated BUN/creatinine consistent with prior results but no hyponatremia. Liver function tests consistent with prior results reveal hyperbilirubinemia and elevated AST with normal ALT. Ammonia level is elevated at 33. presentation consistent with acute hepatic encephalopathy secondary to or exacerbated by noncompliance with lactulose. No headache, focal deficit, signs of CVA/TIA, intracranial hemorrhage or indication for neuroimaging. Recurrent ascites but no signs of peritonitis, respiratory compromise or acute volume overload hence paracentesis is deferred. Chronic renal insufficiency with mild hyponatremia. Admit to med/surg for further evaluation and management. PATIENT CARE TRANSITIONED: Time: 19:15, Dr. Shook. Counseled patient and family regarding diagnosis, diagnostic results and plan for admission. Departure Diagnosis: Primary Impression: Acute hepatic encephalopathy Additional Impressions: Generalized weakness Alcoholic cirrhosis of liver Ascites presence: with ascites Qualified Codes: K70.31 - Alcoholic cirrhosis of liver with ascites Jaundice Hyponatremia Condition: Serious TERESITA BENITEZ MD Jan 28, 2019 16:54
[2019-01-28] MEDS ORDERED: LACT10SO5 PO (18:29)
[2019-01-28] MEDS ORDERED: ACETAMINOPHEN 325 MG TAB PO PRN (19:30)
[2019-01-28] MEDS ORDERED: ONDANSETRON 4 MG INJ IV PRN (19:30)
[2019-01-28] MEDS ORDERED: ALBUMIN HUMAN 25% 50 ML IV ONE (20:00)
[2019-01-28 21:44] VITALS: BP 96/55; PULSE 63; RESP 18
[2019-01-28 21:50] VITALS: Ht 165.1 cm; Wt 51.0 kg
[2019-01-28] MEDS: LACTULOSE 30ML CUP PO SCH (23:04)
[2019-01-29 02:00] VITALS: BP 100/58; PULSE 62; RESP 18
[2019-01-29] MEDS ORDERED: PANTOPRAZOLE (EC) 40 MG TAB PO SCH (06:00)
[2019-01-29 07:18] VITALS: BP 101/56; PULSE 68; RESP 16
[2019-01-29 08:00] VITALS: BP 99/55; PULSE 61; RESP 18
[2019-01-29 08:30] VITALS: BP 103/55; PULSE 62; RESP 17
[2019-01-29] MEDS ORDERED: LACT20SO2 PO (08:51)
--- NOTE | 2019-01-29 08:52 | PDOCDIS ---
Discharge Instructions CONDITION [id number] Patient Condition: [id number] Fair HOME CARE INSTRUCTIONS: [id number] Diet Instructions: [id number] Activity Restrictions: [id number] Slowly Increase Activity FOLLOW UP/APPOINTMENTS Follow-up Plan pcp 1 week MIKA 1 week RACHEL WIGGINS MD Jan 29, 2019 08:52
[2019-01-29] MEDS: LACTULOSE 30ML CUP PO SCH (08:55)
[2019-01-29] MEDS ORDERED: predniSONE 5 MG TAB PO SCH (09:00)
--- NOTE | 2019-01-29 11:49 | HP ---
DATE OF ADMISSION: 01/28/2019 CHIEF COMPLAINT: Altered level of mentation. HISTORY OF PRESENT ILLNESS: A 58-year-old female with end-stage alcoholic liver disease and recurren t ascites, presented to Emergency Room with altered mentation and weakness. The patient underwent a liver biopsy 2 days prior to admission. She missed her lactulose for an entire day. Serum ammonia w as 33. Total bilirubin had decreased to 6.8. White blood cell count was 19.5. The patient has been taking prednisone for presumed diagnosis of acute alcoholic hepatitis. The patient underwent paracentesis and 3400 mL of ascitic fluid was removed. At the time of my visit , she was then alert and oriented to time, place and person. PAST MEDICAL HISTORY: 1. End-stage liver disease. 2. History of alcohol abuse. SOCIAL HISTORY: Patient lives at home. She was drinking wine on a daily basis for several years. PHYSICAL EXAMINATION: GENERAL: Well-developed, well-nourished female who is jaundiced. NEUROLOGIC: Alert and oriented to time, person and place. LUNGS: Clear to auscultation. CARDIAC: Regular rate and rhythm. ABDOMEN: Mildly distended, normoactive bowel sounds, nontender. EXTREMITIES: No clubbing, cyanosis, or edema. NEUROLOGICAL: Nonfocal. ASSESSMENT: 1. Hepatic encephalopathy due to discontinuation of lactulose x1 day, resolved. 2. End-stage alcoholic liver disease. 3. Recurrent ascites, status post paracentesis and removal of 3400 mL of fluid. PLAN: Place in med/surg observation and resume lactulose and increase the dose to 30 mL 4 times jose francisco y. Continue home medications. Plan of care was discussed with patient and her sister at the bedside. Dictated By: RACHEL WIGGINS MD SK/NTS Conf#: [id number] DID#: [id number] CC: ESTHER HURTADO MD;*EndCC*
--- NOTE | 2019-01-29 18:40 | DS ---
DATE OF ADMISSION: 01/28/2019 DATE OF DISCHARGE: 01/29/2019 DISCHARGE DIAGNOSES: 1. A 58-year-old female with hepatic encephalopathy, improved. 2. End-stage alcoholic liver disease. 3. Recurrent ascites, status post paracentesis. 4. Jaundice. HOSPITAL COURSE: A 58-year-old female with recently diagnosed end-stage alcoholic liver disease, pre sented to emergency room with altered mentation. The patient missed her lactulose for 1 day. She un derwent liver biopsy 2 days prior to admission. Serum ammonia was only 33. The patient received lac tulose and her mentation improved. She underwent paracentesis and 3400 mL of ascitic fluid was remov ed. I increased her lactulose to 30 mL 4 times daily and asked her to be compliant with the medical therapy. This was discussed with her sister as well. The patient is in stable condition for dischar ge. She will follow up with her PCP and shoe trimmer as outpatient. DISCHARGE MEDICATIONS: 1. Prednisone 20 mg daily. 2. Lactulose 30 mL 4 times daily. 3. Lasix 40 mg daily. 4. Spironolactone 50 mg b.i.d. Dictated By: RACHEL WIGGINS MD SK/NTS Conf#: [id number] DID#: [id number] CC: ESTHER HURTADO MD;*EndCC*
== END 2019-01-29 13:10 | disposition home health service (06) | DRG 442 ==
LOC: E/R 16:23 → 2NE 19:20 → EDBEDREQ 19:33
PROVIDERS: ADMIT Internal Medicine; ATTEND Internal Medicine
PROC: 0W9G3ZZ Drainage of Peritoneal Cavity, Percutaneous Approach (ICD-10-PCS; principal; 2019-01-29)
DX: K72.90 Hepatic failure, unspecified without coma (principal); E87.1 Hypo-osmolality and hyponatremia; K70.31 Alcoholic cirrhosis of liver with ascites; F10.10 Alcohol abuse, uncomplicated; Y90.9 Presence of alcohol in blood, level not specified
CPT/HCPCS: 80048; 80053; 80076; 81001; 82140; 82962; 85025; 85610; 85730; 87086; J7512

== ENCOUNTER 2019-01-31 22:16 | Observation (INO) | payer OTHER ==
[~2019-01-31] VITALS: Ht 157.5 cm; Wt 50.0 kg
[~2019-01-31 22:16] MED LIST changes: +LACT10SO5 PO; -LEVO500T10 PO; -PANT40TA4 PO; -PROP20TA4 PO
[2019-01-31] MEDS ORDERED: SOD CHLORIDE 0.9% 500 ML IV STA (22:33)
--- NOTE | 2019-02-01 02:50 | ERD ---
ER Documentation Chief Complaint Chief Complaint ALOC SINCE THIS AM ; HX OF FAILURE HPI Is a 58-year-old who has been altered since this morning per the family. Patient has history of end-stage liver disease and possible hepatic enc ephalopathy. According to family, today she was acting more altered than normal. She has been essentially repeating the same 5 phrases per the family. No trauma. No other current complaints. ROS All systems reviewed and are negative except as per history of present illness. Medications Home Meds Active Scripts Lactulose* (Lactulose*) 20 Gm/30 Ml Solution, 20 GM PO QID for 30 Days, 3 Refills Prov:RACHEL WIGGINS MD 01/29/19 Reported Medications Lactulose* (Lactulose*) 10 Gm/15 Ml Solution, 30 ML PO QID, ML 01/28/19 Furosemide* (Furosemide*) 40 Mg Tablet, 40 MG PO DAILY, TAB 01/19/19 Spironolactone* (Aldactone*) 25 Mg Tablet, 50 MG PO BID for 30 Days, #120 take 2 tablets by mouth twice a day 01/19/19 Prednisone* (Prednisone*) 20 Mg Tab, 15 MG PO DAILY for 30 Days, #60 take 2 tablets by mouth once daily 01/19/19 Discontinued Reported Medications Pantoprazole* (Pantoprazole*) 40 Mg Tablet.dr, 40 MG PO DAILY for 30 Days, #30 take 1 tablet by mouth once daily 01/19/19 Propranolol Hcl* (Propranolol Hcl*) 20 Mg Tablet, 20 MG PO DAILY for 30 Days, #60 take 1/2 tablet by mouth twice a day 01/19/19 Discontinued Scripts Levofloxacin* (Levofloxacin*) 500 Mg Tablet, 500 MG PO DAILY for 5 Days, TAB Prov:RACHEL WIGGINS MD 01/20/19 Lactulose* (Lactulose*) 20 Gm/30 Ml Solution, 10 GM PO TID for 30 Days Prov:RACHEL WIGGINS MD 01/20/19 Allergies Allergies: Coded Allergies: Penicillins (Unverified Allergy, Unknown, 01/28/19) latex (Unverified Allergy, Unknown, 01/28/19) PMhx/Soc History of Surgery: Yes (breast augmentation) Anesthesia Reaction: No Hx Neurological Disorder: No Hx Respiratory Disorders: No Hx Cardiac Disorders: No Hx Psychiatric Problems: No Hx Miscellaneous Medical Probl: Yes (Liver cirrhosis, encephalopathy) Hx Alcohol Use: Yes Hx Substance Use: No Hx Tobacco Use: No Smoking Status: Unknown if ever smoked Physical Exam Vitals Vital Signs Date Temp Pulse Resp B/P (MAP) Pulse Ox O2 O2 Flow FiO2 Time Delivery Rate 02/01/19 101 22 109/70 100 Room Air 01:56 (83) 01/31/19 101 22 115/69 99 23:33 (84) 01/31/19 99.3 115 19 115/58 98 22:18 (77) Physical Exam Const: No acute distress Head: Atraumatic Eyes: Normal Conjunctiva ENT: Normal External Ears, Nose and Mouth. Neck: Full range of motion. No meningismus. Resp: Clear to auscultation bilaterally Cardio: Regular rate and rhythm, no murmurs Abd: Soft, non tender, non distended. Normal bowel sounds Skin: No petechiae or rashes Back: No midline or flank tenderness Ext: No cyanosis, or edema Neur: Awake, alert but not oriented Psych: Normal Mood and Affect Result Diagram: 01/31/19224201/31/192242 Results 24 hrs Laboratory Tests Test 01/31/19 22:43 01/31/19 22:58 01/31/19 23:02 02/01/19 02:10 White Blood Count 19.1 10^3/ul Red Blood Count 3.78 10^6/ul Hemoglobin 12.5 g/dl Hematocrit 35.6 % Mean Corpuscular 94.2 fl Volume Mean Corpuscular 33.1 pg Hemoglobin Mean Corpuscular 35.1 g/dl Hemoglobin Concent Red Cell 15.1 % Distribution Width Platelet Count 172 10^3/UL Mean Platelet 9.8 fl Volume Immature 1.500 % Granulocytes % Neutrophils % 86.3 % Lymphocytes % 7.6 % Monocytes % 4.3 % Eosinophils % 0.1 % Basophils % 0.2 % Nucleated Red 0.0 /100WBC Blood Cells % Immature 0.290 10^3/ul Granulocytes # Neutrophils # 16.5 10^3/ul Lymphocytes # 1.5 10^3/ul Monocytes # 0.8 10^3/ul Eosinophils # 0.0 10^3/ul Basophils # 0.0 10^3/ul Nucleated Red 0.0 10^3/ul Blood Cells # Urine Color ZAY Urine Clarity CLEAR Urine pH 5.0 Urine Specific 1.019 [place] Urine Ketones NEGATIVE mg/dL Urine Nitrite NEGATIVE mg/dL Urine Bilirubin 2+ mg/dL Urine Urobilinogen 2+ mg/dL Urine Leukocyte NEGATIVE Shant/ul Esterase Urine Hemoglobin NEGATIVE mg/dL Urine Glucose NEGATIVE mg/dL Urine Total NEGATIVE mg/dl Protein Sodium Level 123 mmol/L Potassium Level 4.6 mmol/L Chloride Level 89 mmol/L Carbon Dioxide 23 mmol/L Level Anion Gap 11 Blood Urea 19 mg/dl Nitrogen Creatinine 0.81 mg/dl Est Glomerular > 60 mL/min Filtrat Rate mL/min Glucose Level 100 mg/dl Calcium Level 9.1 mg/dl Total Bilirubin 7.3 mg/dl Direct Bilirubin 4.40 mg/dl Indirect Bilirubin 2.9 mg/dl Aspartate Amino 109 IU/L Transf (AST/SGOT) Alanine 69 IU/L Aminotransferase ( ALT/SGPT) Alkaline 274 IU/L Phosphatase Ammonia < 9 umol/l Total Protein 6.8 g/dl Albumin 3.0 g/dl Globulin 3.80 g/dl Albumin/Globulin 0.78 Ratio Salicylates Level < 1.0 mg/dl Urine Opiates Negative Screen Acetaminophen < 10.0 ug/ml Level Urine Barbiturates Negative Urine Amphetamines Negative Screen Urine Negative Benzodiazepines Screen Urine Cocaine Negative Screen Urine Cannabinoids Negative Ethyl Alcohol < 10.0 mg/dl Level POC Venous Lactate 1.7 mmol/L Bedside Glucose 109 mg/dL Lactic Acid Level 1.2 mmol/L Current Medications Medications Dose Sig/Jerrica Start Time Status Last (Trade) Ordered Route PRN Stop Time Admin Dose Reason Admin Sodium 500 ml @ Q1H STAT 01/31/19 DC 01/31/19 Chloride 500 mls/hr IV 22:33 23:05 01/31/19 23:32 Procedures/MDM Emergency department course: Patient seen and memory changes. Placed in bed fr om the evaluation. Intravenous access was, and blood work done. Instead EKG/chest x-ray stat CT scan of the head. Serial exams remained stable family at the bedside. EKG: Rate/Rhythm: [Normal Sinus Rhythm] QRS, ST, T-waves: [No changes consistent w/ acute ischemia] Impression: [No evidence of ischemia or arrhythmia] Chest X-ray 1V Interpreted by me: Soft Tissue: No acute abnormalities Bones: No acute abnormalities Mediastinum/Cardiac Silhouette/Lungs: [No acute abnormalities] CT of the head is read as negative by the radiologist. Please see his full dictation for full report Medical decision makin-year-old female is more altered than normal. This likely related to her end-stage liver disease. Patient will be admitted to Dr. Chavez who is on-call for IPA. Family made aware of all results and clinical findings Departure Diagnosis: Primary Impression: Altered level of consciousness Additional Impressions: Acute hepatic encephalopathy Alcoholic cirrhosis of liver Ascites presence: unspecified Qualified Codes: K70.30 - Alcoholic cir rhosis of liver without ascites Confusion Condition: Serious ANGEL WHITESIDE Feb 01, 2019 02:50
[2019-02-01] MEDS ORDERED: LACTULOSE 30ML CUP PO SCH ×2 (09:00)
[2019-02-01] MEDS ORDERED: SPIRONOLACTONE 25 MG TAB PO SCH (09:00)
[2019-02-01] MEDS ORDERED: PRED20TA PO (09:28)
[2019-02-01] MEDS ORDERED: SPIR50TA PO (09:29)
[2019-02-01] MEDS: LACTULOSE 30ML CUP PO SCH ×4 (09:34→20:53)
[2019-02-01] MEDS: FUROSEMIDE 40 MG TAB PO SCH (09:45)
--- NOTE | 2019-02-01 10:59 | HP ---
DATE OF ADMISSION: 01/31/2019 REASON FOR VISIT: Altered mental status. HISTORY OF PRESENT ILLNESS: A 58-year-old female well known to me with end-stage liver disease prese nted to emergency room with altered mentation x2 days. The patient was recently discharged from the hospital following paracentesis. The patient has not been compliant with taking lactulose on a regul ar basis at home. There was no complaint of abdominal pain. No hematemesis or bright red blood per rectum or melena. Initial evaluation revealed altered mentation, white blood cell count was 19,000, hemoglobin 12.5, platelet count 172,000. Serum ammonia was less than 9. PAST MEDICAL HISTORY: 1. Endstage alcoholic liver disease. 2. History of ascites. MEDICATIONS PRIOR TO ADMISSION: 1. Spironolactone. 2. Lasix. 3. Lactulose. 4. Prednisone. PHYSICAL EXAMINATION: GENERAL: Well-developed, thin female who is alert and completely disoriented. VITAL SIGNS: Blood pressure 106/65, pulse 105, temperature 99.1, respirations 16. HEENT: Extraocular muscles are intact. Pupils are round, equal and reactive to light bilaterally. Sclerae are mildly icteric. NECK: Supple. LUNGS: Clear to auscultation bilaterally. CARDIAC: Tachycardia, no murmurs or gallops. ABDOMEN: Soft, mildly distended, nontender, normoactive bowel sounds. EXTREMITIES: No clubbing, cyanosis, or edema. NEUROLOGICAL: The patient moves all extremities. ASSESSMENT: 1. A 58-year-old female with altered mental status due to hepatic encephalopathy. Even though junior ia level is less than 9. The patient has not been compliant with taking lactulose at home. 2. Ascites, status post recent paracentesis. 3. Hyponatremia. PLAN: 1. Place in tele observation. 2. Continue lactulose. 3. Hold oral prednisone since this may be contributing to her altered mental status. 4. Arrange placement. 5. loft worker consultation was requested and case was discussed with the psychotherapist social worker at the bed side. Plan of care was discussed with her son as well. Dictated By: RACHEL BASS/CHESTER Conf#: [id number] DID#: [id number] CC: CHIKA GARCIA DO;*EndCC*
[2019-02-01] MEDS ORDERED: SOD CHLORIDE 0.9% 500 ML IV ONE (12:00)
[2019-02-01] MEDS: SOD CHLORIDE 0.9% 1,000 ML IV SCH (13:45)
[2019-02-01 14:06] VITALS: PULSE 104
[2019-02-01 15:22] VITALS: BP 109/62; PULSE 104; RESP 18
[2019-02-01 15:50] VITALS: Ht 157.5 cm; Wt 50.0 kg
[2019-02-01 16:35] VITALS: PULSE 98
[2019-02-01] MEDS: SPIRONOLACTONE 25 MG TAB PO SCH (17:52)
[2019-02-01 19:32] VITALS: BP 99/56; PULSE 98; RESP 17
[2019-02-01 20:00] VITALS: PULSE 105
[2019-02-02] VITALS (11 sets, daily range): BP systolic 98–117; BP diastolic 53–64; PULSE 85–111; RESP 16–18
[2019-02-02] MEDS: SOD CHLORIDE 0.9% 1,000 ML IV SCH ×4 (00:20→19:22)
[2019-02-02] MEDS: SPIRONOLACTONE 25 MG TAB PO SCH ×2 (05:32→17:31)
[2019-02-02] MEDS: SODIUM CHLORIDE 1 GM TAB PO SCH ×3 (08:48→20:10)
[2019-02-02] MEDS: LACTULOSE 30ML CUP PO SCH ×4 (08:49→20:10)
[2019-02-02] MEDS: FUROSEMIDE 40 MG TAB PO SCH (08:49)
--- NOTE | 2019-02-02 10:15 | PN ---
Date/Time of Note Date/Time of Note DATE: 02/02/19 TIME: 10:14 Subjective Patient is now alert and oriented to place. No complaints. Objective Vitals Vital Signs Date Temp Pulse Resp B/P (MAP) Pulse Ox O2 O2 Flow FiO2 Time Delivery Rate 02/02/19 85 08:43 02/02/19 98.1 16 98/53 (68) 98 04:22 02/01/19 Room Air 12:42 Intake and Output 02/01/19 02/01/19 02/02/19 1515:00 23:00 07:00 IntakeIntake Total 500 ml 180 ml 1400 ml OutputOutput Total 600 ml 600 ml BalanceBalance 500 ml -420 ml 800 ml Lungs clear to auscultation Cardiac regular rate and rhythm Abdomen soft mildly distended nontender Extremities no clubbing cyanosis or edema Neurological nonfocal Results Result Diagram: 01/31/19 2243 02/02/19 0609 Medications Medications Current Medications Lactulose (Enulose) 20 gm QID PO Last administered on 02/02/19at 08:49; Admin Dose 20 GM; Start 02/01/19 at 09:00 Furosemide (Lasix) 40 mg DAILY PO Last administered on 02/02/19at 08:49; Admin Dose 40 MG; Start 02/01/19 at 09:00 Spironolactone (Aldactone) 50 mg BID DIURETICS PO Last administered on 02/02/19at 05:32; Admin Dose 50 MG; Start 02/01/19 at 18:00 Sodium Chloride 1,000 ml @ 125 mls/hr Q8H IV Last administered on 02/02/19at 05:34; Admin Dose 75 MLS/HR; Start 02/01/19 at 11:00 Sodium Chloride (Nacl) 1 gm TID PO Last administered on 02/02/19at 08:48; Admin Dose 1 GM; Start 02/02/19 at 09:00 VTE Prophylaxis Risk score (from Nsg)>0 risk: 2 SCD applied (from Nsg): Yes Lines/Catheters IV Catheter Type: Saline Lock Shannon in Place: No Assessment/Plan Assessment/Plan 58-year-old female with hepatic encephalopathy, resolved End-stage alcoholic liver disease Hyponatremia Increase normal saline 225 cc an hour Start sodium chloride tablets 1 g 3 times daily Discharge planning in a.m. possibly to RACHEL BARRETO MD Feb 02, 2019 10:15
[2019-02-03] VITALS (10 sets, daily range): BP systolic 107–118; BP diastolic 62–65; PULSE 80–124; RESP 16–22
[2019-02-03] MEDS: SOD CHLORIDE 0.9% 1,000 ML IV SCH ×3 (04:12→16:48)
[2019-02-03] MEDS: SPIRONOLACTONE 25 MG TAB PO SCH (05:17)
[2019-02-03] MEDS ORDERED: [UNRECOGNIZED DRUG - CODE] PO (08:36)
--- NOTE | 2019-02-03 08:37 | PDOCDIS ---
Discharge Instructions CONDITION [id number] Patient Condition: [id number] Good HOME CARE INSTRUCTIONS: [id number] Diet Instructions: [id number] Regular ACTIVITY: [id number] Activity Restrictions: [id number] No Restrictions FOLLOW UP/APPOINTMENTS Follow-up Plan pcp 1 week RACHEL WIGGINS MD Feb 03, 2019 08:37
[2019-02-03] MEDS: LACTULOSE 30ML CUP PO SCH ×4 (09:45→16:47)
[2019-02-03] MEDS: SODIUM CHLORIDE 1 GM TAB PO SCH ×2 (09:45→12:40)
[2019-02-03] MEDS: FUROSEMIDE 40 MG TAB PO SCH (09:46)
--- NOTE | 2019-02-03 10:18 | DS ---
DATE OF ADMISSION: 02/01/2019 DATE OF DISCHARGE: 02/03/2019 DISCHARGE DIAGNOSES: 1. A 58-year-old with hepatic encephalopathy, resolved. 2. End-stage alcoholic liver disease. 3. History of ascites. 4. Hyponatremia. HOSPITAL COURSE: A 58-year-old female with recently diagnosed end-stage alcoholic liver disease, pre sented to emergency room with altered mental status and confusion. Despite the fact her serum ammoni a was less than 9, her encephalopathy was attributed to noncompliance with medical therapy. Lactulos e was resumed. Her mentation improved significantly during the hospitalization. The patient was found to have hyponatremia. She received normal saline and also started on salt tabl ets. The serum sodium was 126 on the day of discharge. The patient is now in a stable condition for transition to [facility] facility. The home situation is not good and no family members live w ith the patient. I highly recommended [facility] facility placement until appropriate placement is arranged as outpatient. The patient will most likely need a caregiver to stay with her at all ti mes. MEDICATIONS ON DISCHARGE: 1. Lasix 40 mg daily. 2. Lactulose 30 mL q.i.d. 3. Spironolactone 50 mg daily. 4. Sodium chloride 1 gram p.o. t.i.d. x10 days. PLAN: 1. Discharge to [facility] facility. 2. Follow up with PCP. 3. Follow up with gastroenterology. Dictated By: RACHEL BASS/CHESTER Conf#: [id number] DID#: [id number] CC: RACHEL WIGGINS MD;*EndCC*
== END 2019-02-03 17:10 ==
LOC: E/R 22:16 → 6WM 02-01 00:21 → EDBEDREQ 02-01 09:34 → EDBEDREQSVC 02-01 09:34 → CANRESERV 02-01 09:43 → CMPBEDREQ 02-01 11:42 → 6WM 02-02 19:32
PROVIDERS: ADMIT Internal Medicine; ATTEND Internal Medicine
DX: K70.40 Alcoholic hepatic failure without coma (principal); E87.1 Hypo-osmolality and hyponatremia
CPT/HCPCS: 36415; 70450; 71045; 80048; 80053; 80307; 81003; 82140; 82962; 83605; 85025; 87081; 93005; 96360; 99285; G0378; J7030; J7040

== ENCOUNTER 2019-02-08 16:38 | Emergency (ER) | payer SELFPAY ==
[~2019-02-08] VITALS: Ht 172.7 cm; Wt 52.4 kg
[~2019-02-08 16:38] MED LIST changes: -LACT20SO2 PO; -PRED20TA PO; -SPIR25TA PO; +SPIR50TA PO; +[UNRECOGNIZED DRUG - CODE] PO
[2019-02-08 16:59] VITALS: BP 160/77; PULSE 106; RESP 18; Ht 172.7 cm; Wt 52.4 kg
== END 2019-02-08 22:37 | disposition left against medical advice (07) ==
LOC: E/R 16:38
DX: Z53.21 Procedure and treatment not carried out due to patient leaving prior to being seen by health care provider (principal)

== ENCOUNTER 2019-02-09 07:18 | Emergency (ER) | payer OTHER ==
[~2019-02-09] VITALS: Wt 52.8 kg
[2019-02-09 10:07] VITALS: BP 102/58; PULSE 92; RESP 18
[2019-02-09 10:24] VITALS: BP 96/56; PULSE 92; RESP 18
[2019-02-09] MEDS ORDERED: LIDOCAINE 1% (MPF) 5 ML VIAL ONE (10:34)
[2019-02-09 10:45] VITALS: BP 103/63; PULSE 92; RESP 18
--- NOTE | 2019-02-09 11:53 | ERD ---
ER Documentation Chief Complaint Chief Complaint here for paracenthesis HPI Patient is a 58-year-old female with liver failure who presents saying "I need to get drained". She said that her last paracentesis was done just a few weeks ago. She has had no fevers. She was slightly confused but the daughter says she has better than usual. The patient is taking lactulose. Upon review of old medical records this is the patient's sixth visit to the ER since January 17 of this year. She does have a primary doctor and a liver specialist. ROS All systems reviewed and are negative except as per history of present illness. Medications Home Meds Active Scripts Sodium Chloride (Sodium Chloride) 1,000 Mg Tablet.doris, 1 GM PO TID for 10 Days, TAB Prov:RACHEL WIGGINS MD 02/03/19 Reported Medications Spironolactone* (Aldactone*) 50 Mg Tablet, 50 MG PO DAILY, #30 TAB 02/01/19 Lactulose* (Lactulose*) 10 Gm/15 Ml Solution, 30 ML PO QID PRN for CONSTIPATION, ML 01/28/19 Furosemide* (Furosemide*) 40 Mg Tablet, 40 MG PO DAILY, TAB 01/19/19 Discontinued Reported Medications Prednisone* (Prednisone*) 20 Mg Tab, 40 MG PO DAILY for 30 Days, TAB 02/01/19 Allergies Allergies: Coded Allergies: Penicillins (Unverified Allergy, Severe, RASH, 02/03/19) PER PT latex (Unverified Allergy, Severe, RASH, 02/03/19) PER PT PMhx/Soc History of Surgery: Yes (s/p paracentesis, breast augmentation) Anesthesia Reaction: No Hx Neurological Disorder: No Hx Respiratory Disorders: No Hx Cardiac Disorders: No Hx Psychiatric Problems: No Hx Miscellaneous Medical Probl: Yes (liver cirrhosis) Hx Alcohol Use: Yes ( states it has been months) Hx Substance Use: No Hx Tobacco Use: No Smoking Status: Never smoker FmHx Family History: No diabetes Physical Exam Vitals Vital Signs Date Temp Pulse Resp B/P (MAP) Pulse Ox O2 O2 Flow FiO2 Time Delivery Rate 02/09/19 92 18 103/63 98 Room Air 10:45 (76) 02/09/19 92 18 96/56 (69) 98 10:24 02/09/19 98.0 92 18 102/58 98 10:07 (73) 02/09/19 81 18 110/86 98 Room Air 09:13 (94) 02/09/19 97.8 96 18 107/56 99 07:20 (73) Physical Exam Const: Jaundice Head: Atraumatic Eyes: Scleral icterus ENT: Normal External Ears, Nose and Mouth. Neck: Full range of motion. No meningismus. Resp: Clear to auscultation bilaterally Cardio: Regular rate and rhythm, no murmurs Abd: Soft, distended abdomen with positive fluid wave Skin: Jaundice Back: No midline or flank tenderness Ext: No cyanosis, or edema Neur: Awake and answering all questions appropriately Results 24 hrs Current Medications Medications Dose Sig/Jerrica Start Time Status Last (Trade) Ordered Route PRN Stop Time Admin Dose Reason Admin Lidocaine 5 ml STK-MED 02/09/19 DC (Xylocaine ONCE .ROUTE 10:34 1% (Mpf)) 02/09/19 10:35 Procedures/MDM Ultrasound-guided paracentesis performed by radiology. Patient is a 58-year-old female with liver failure who presents with ascites. T he patient had an ultrasound-guided paracentesis performed by radiology. She is answering questions appropriately. She has a primary doctor and a liver specialist. The patient will be discharged but will need to follow-up closely with her primary doctor. She should attempt to schedule these paracentesis in the future. She can return for any worsening symptoms. I doubt spontaneous bacterial peritonitis. Departure Diagnosis: Primary Impression: Ascites Ascites type: other type Qualified Codes: R18.8 - Other ascites Additional Impression: Cirrhosis Hepatic cirrhosis type: alcoholic cirrhosis Ascites presence: with ascites Qualified Codes: K70.31 - Alcoholic cirrhosis of liver with ascites Condition: Fair Patient Instructions: Ascites Additional Instructions: Llame al doctor MAANA y liliana dayan PEDRO PARA DENTRO DE 1-2 LORENZO.Dgale a la secretaria que nosotros le instruimos hacer esta pedro.Avise o llame si thompson condicin se empeora antes de la pedro. Regresa aqui si peor o no mejor. BRISEYDA GIL MD Feb 09, 2019 11:53
== END 2019-02-09 11:26 | disposition home or self-care (01) ==
LOC: E/R 07:18
DX: K70.31 Alcoholic cirrhosis of liver with ascites (principal); R40.2142 Coma scale, eyes open, spontaneous, at arrival to emergency department; R40.2362 Coma scale, best motor response, obeys commands, at arrival to emergency department; R40.2252 Coma scale, best verbal response, oriented, at arrival to emergency department

== ENCOUNTER 2019-02-27 22:47 | Emergency (ER) | payer OTHER ==
[~2019-02-27] VITALS: Ht 165.1 cm; Wt 45.0 kg
[2019-02-27 23:05] VITALS: Ht 165.1 cm; Wt 45.0 kg
--- NOTE | 2019-02-28 00:13 | ERD ---
ER Documentation Chief Complaint Chief Complaint Son brought in pt for hypotension HPI This is a 58-year-old female with a history of end-stage liver cirrhosis, who presents for evaluation of hypotension. Patient had admission about 2 and half weeks ago, the majority of history was obtained from her son. She just started seeing a offal worker today, she is on a diuretic regularly, as well as sodium pills. She has been in her usual state of health, which her son describes is having good days and bad days. She has not had a fever, no recent trauma, no chest pain or shortness of breath. There are no alleviating or aggravating factors. Her blood pressure was in the 70s systolic per the son at its lowest. ROS All systems reviewed and are negative except as per history of present illness. Medications Home Meds Active Scripts Sodium Chloride (Sodium Chloride) 1,000 Mg Tablet.doris, 1 GM PO TID for 10 Days, TAB Prov:RACHEL WIGGINS MD 02/03/19 Reported Medications Spironolactone* (Aldactone*) 50 Mg Tablet, 50 MG PO DAILY, #30 TAB 02/01/19 Lactulose* (Lactulose*) 10 Gm/15 Ml Solution, 30 ML PO QID PRN for CONSTIPATION, ML 01/28/19 Furosemide* (Furosemide*) 40 Mg Tablet, 40 MG PO DAILY, TAB 01/19/19 Allergies Allergies: Coded Allergies: Penicillins (Unverified Allergy, Severe, RASH, 02/03/19) PER PT latex (Unverified Allergy, Severe, RASH, 02/03/19) PER PT PMhx/Soc History of Surgery: Yes (s/p paracentesis, breast augmentation) Anesthesia Reaction: No Hx Neurological Disorder: No Hx Respiratory Disorders: No Hx Cardiac Disorders: No Hx Psychiatric Problems: No Hx Miscellaneous Medical Probl: Yes (liver cirrhosis) Hx Alcohol Use: Yes ( states it has been months) Hx Substance Use: No Hx Tobacco Use: No Physical Exam Vitals Vital Signs Date Temp Pulse Resp B/P (MAP) Pulse Ox O2 O2 Flow FiO2 Time Delivery Rate 02/28/19 84 18 92/60 (71) 98 Room Air 02:05 02/28/19 98.3 89 20 87/51 (63) 100 00:10 02/27/19 98.3 87 20 87/51 (63) 100 23:05 Physical Exam Const: Patient appears jaundiced, chronically ill-appearing. Head: Atraumatic Eyes: Scleral icterus noted bilaterally ENT: Normal External Ears, Nose and Mouth. Neck: Full range of motion. No meningismus. Resp: Clear to auscultation bilaterally Cardio: Regular rate and rhythm, no murmurs Abd: Soft, distended. Normal bowel sounds Skin: No petechiae or rashes Back: No midline or flank tenderness Ext: No cyanosis, or edema Neur: Awake and alert Psych: Normal Mood and Affect Result Diagram: 02/28/19 0110 02/28/19 0110 Results 24 hrs Laboratory Tests Test 02/28/19 01:10 02/28/19 01:30 02/28/19 01:43 02/28/19 02:39 White Blood Count 15.5 10^3/ul Red Blood Count 3.51 10^6/ul Hemoglobin 11.1 g/dl Hematocrit 31.7 % Mean Corpuscular 90.3 fl Volume Mean Corpuscular 31.6 pg Hemoglobin Mean Corpuscular 35.0 g/dl Hemoglobin Concen t Red Cell 14.8 % Distribution Width Platelet Count 205 10^3/UL Mean Platelet 9.5 fl Volume Immature 1.600 % Granulocytes % Neutrophils % 77.8 % Lymphocytes % 13.0 % Monocytes % 6.8 % Eosinophils % 0.5 % Basophils % 0.3 % Nucleated Red 0.0 /100WBC Blood Cells % Immature 0.240 10^3/ul Granulocytes # Neutrophils # 12.0 10^3/ul Lymphocytes # 2.0 10^3/ul Monocytes # 1.1 10^3/ul Eosinophils # 0.1 10^3/ul Basophils # 0.0 10^3/ul Nucleated Red 0.0 10^3/ul Blood Cells # Prothrombin Time 15.0 Sec Prothrombin Time 1.2 Ratio INR International 1.17 Normalized Ratio Activated 39.8 Sec Partial Thrombopl ast Time Sodium Level 121 mmol/L Potassium Level 4.5 mmol/L Chloride Level 86 mmol/L Carbon Dioxide 23 mmol/L Level Anion Gap 12 Blood Urea 19 mg/dl Nitrogen Creatinine 0.94 mg/dl Est Glomerular > 60 mL/min Filtrat Rate mL/min Glucose Level 109 mg/dl Calcium Level 9.1 mg/dl Total Bilirubin 2.8 mg/dl Direct Bilirubin 0.80 mg/dl Indirect 2.0 mg/dl Bilirubin Aspartate Amino 73 IU/L Transf (AST/SGOT) Alanine 34 IU/L Aminotransferase (ALT/SGPT) Alkaline 301 IU/L Phosphatase Ammonia < 9 umol/l Troponin I 0.017 ng/ml Total Protein 7.2 g/dl Albumin 2.9 g/dl Globulin 4.30 g/dl Albumin/Globulin 0.67 Ratio Urine Color ZAY Urine Clarity CLOUDY Urine pH 5.0 Urine Specific 1.014 Jansen Urine Ketones NEGATIVE mg/dL Urine Nitrite NEGATIVE mg/dL Urine Bilirubin NEGATIVE mg/dL Urine NEGATIVE mg/dL Urobilinogen Urine Leukocyte 2+ Shant/ul Esterase Urine Microscopic 1 /HPF RBC Urine Microscopic > 182 /HPF WBC Urine Squamous FEW /HPF Epithelial Cells Urine Bacteria FEW /HPF Urine Mucus FEW /HPF Urine Hemoglobin 1+ mg/dL Urine Glucose NEGATIVE mg/dL Urine Total NEGATIVE mg/dl Protein Bedside Urine pH 5.5 (LAB) Bedside Urine Negative Protein (LAB) Bedside Urine Negative Glucose (UA) Bedside Urine Trace Ketones (LAB) Bedside Urine Trace-intact Blood Bedside Urine Negative Nitrite (LAB) Bedside Urine 2+ Leukocyte Esteras e (L Lactic Acid Level 1.9 mmol/L Current Medications Medications Dose Sig/Jerrica Start Time Status Last (Trade) Ordered Route PRN Stop Time Admin Dose Reason Admin Albumin 100 ml @ ONCE ONCE 02/28/19 DC 02/28/19 Human 100 mls/hr IV 03:00 03:38 02/28/19 03:59 Ceftriaxone 50 ml @ ONCE STAT 02/28/19 DC 02/28/19 Sodium 100 mls/hr IVPB 02:39 02:50 02/28/19 03:08 Procedures/MDM 58-year-old female presents for evaluation of low blood pressure. She generally denies any other symptoms aside from some mild suprapubic tenderness, in the ED, her blood pressure was in the 90s to high 80s systolics, however she was otherwise asymptomatic. I noted a leukocytosis which is actually downtrending from previous, her lactate was negative, and she had no evidence of tachycardia, or other signs of sepsis. At this point I do not suspect the patient has severe sepsis or septic shock. She does not appear altered, and has no signs of encephalopathy. Otherwise her bilirubin and her sodium appear relatively stable. EKG: Rate/Rhythm: Normal Sinus Rhythm QRS, ST, T-waves: No changes consistent w/ acute ischemia Impression: No evidence of ischemia or arrhythmia 4:21 AM: observation Note: Time: 4 hours Family Hx: [Negative] for diabetes Evaluation: Multiple exams showed improving symptoms and no evidence of clinical decompensation. Patient's urinalysis returned with significant WBCs, she was given a dose of ceftriaxone, also given albumin, the case was discussed with Dr. Carvajal, stated that he knew the patient well, and her blood pressure tends to run low, felt that she could be managed as an outpatient, I discussed this with the patient and her son, they were both agreeable to this, at discharge the patient was in no acute distress. Departure Diagnosis: Primary Impression: Hypotension Hypotension type: unspecified hypotension type Qualified Codes: I95.9 - Hypotension, unspecified Additional Impressions: Alcoholic cirrhosis of liver Ascites presence: unspecified Qualified Codes: K70.30 - Alcoholic cirrhosis of liver without ascites Urinary tract infection Urinary tract infection type: site unspecified Hematuria presence: without hematuria Qualified Codes: N39.0 - Urinary tract infection, site not specified Condition: YAMIL Gonzáles MD Feb 28, 2019 00:13
[2019-02-28] MEDS ORDERED: CEFTRIAXONE 1 GM/50 ML (PMX) 50 ML IVPB STA (02:39)
[2019-02-28] MEDS ORDERED: ALBUMIN HUMAN 25% 100 ML IV ONE (03:00)
[2019-02-28] MEDS ORDERED: CEPH-443 PO (04:24)
[2019-02-28 04:41] VITALS: BP 98/64; PULSE 78; RESP 16
== END 2019-02-28 04:42 | disposition home or self-care (01) ==
LOC: E/R 22:47
DX: I95.9 Hypotension, unspecified (principal); K70.30 Alcoholic cirrhosis of liver without ascites; N39.0 Urinary tract infection, site not specified; R07.9 Chest pain, unspecified; Z91.040 Latex allergy status
CPT/HCPCS: 71045; 80053; 81001; 82140; 83605; 84484; 85025; 85610; 85730; 93005; 96374; 96375; 99285; P9047; 81003

== ENCOUNTER 2019-03-22 18:23 | Inpatient (IN) | payer OTHER ==
[~2019-03-22] VITALS: Ht 165.1 cm; Wt 47.0 kg
[~2019-03-22 18:23] MED LIST changes: +CEPH-443 PO
[2019-03-22] MEDS ORDERED: morphine 4 MG/ML VIAL IV STA (20:29)
[2019-03-22] MEDS ORDERED: ONDANSETRON 4 MG INJ IV STA (20:29)
--- NOTE | 2019-03-22 22:04 | ERD ---
ER Documentation Chief Complaint Chief Complaint sent by pmd for hyponatremia, ap with nausea and vomiting HPI Patient is a 58-year-old female with cirrhosis who presents for hyponatremia. The patient was sent by her liver specialist Dr. Kessler for admission. She has been slightly confused per the son. Her white blood cell count was also 17 but she denies fevers. She takes Spironolactone and lactulose. Her last paracentesis was March 17 and she usually gets a paracentesis every 9 days. Upon review of old medical records this is the patient's eighth visit to the ER since 2019 and review of the emergency department information exchange system shows visits to 2 separate emergency departments for a total of 9 visits over the past 1 year. ROS All systems reviewed and are negative except as per history of present illness. Medications Home Meds Active Scripts Cephalexin* (Keflex*) 500 Mg Capsule, 500 MG PO QID for 7 Days, CAP Prov:YAMIL MCKEON MD 02/28/19 Sodium Chloride (Sodium Chloride) 1,000 Mg Tablet.doris, 1 GM PO TID for 10 Days, TAB Prov:RACHEL WIGGINS MD 02/03/19 Reported Medications Spironolactone* (Aldactone*) 50 Mg Tablet, 50 MG PO DAILY, #30 TAB 02/01/19 Lactulose* (Lactulose*) 10 Gm/15 Ml Solution, 30 ML PO QID PRN for CONSTIPATION, ML 01/28/19 Furosemide* (Furosemide*) 40 Mg Tablet, 40 MG PO DAILY, TAB 01/19/19 Allergies Allergies: Coded Allergies: Penicillins (Unverified Allergy, Severe, RASH, 02/03/19) PER PT latex (Unverified Allergy, Severe, RASH, 02/03/19) PER PT PMhx/Soc History of Surgery: Yes (s/p paracentesis, breast augmentation) Anesthesia Reaction: No Hx Neurological Disorder: No Hx Respiratory Disorders: No Hx Cardiac Disorders: No Hx Psychiatric Problems: No Hx Miscellaneous Medical Probl: Yes (liver cirrhosis) Hx Alcohol Use: Yes ( states it has been months) Hx Substance Use: No Hx Tobacco Use: No Smoking Status: Never smoker FmHx Family History: No diabetes Physical Exam Vitals Vital Signs Date Temp Pulse Resp B/P (MAP) Pulse Ox O2 O2 Flow FiO2 Time Delivery Rate 03/22/19 97.7 94 18 93/52 (66) 98 18:46 Physical Exam Const: No acute distress Head: Atraumatic Eyes: Normal Conjunctiva ENT: Normal External Ears, Nose and Mouth. Neck: Full range of motion. No meningismus. Resp: Clear to auscultation bilaterally Cardio: Regular rate and rhythm, no murmurs Abd: Abdominal ascites Skin: Jaundice Back: No midline or flank tenderness Ext: No cyanosis, or edema Neur: Awake and alert Psych: Normal Mood and Affect Result Diagram: 03/22/19211403/22/192114 Results 24 hrs Laboratory Tests Test 03/22/19 21:15 White Blood Count 16.7 10^3/ul Red Blood Count 2.52 10^6/ul Hemoglobin 7.9 g/dl Hematocrit 23.0 % Mean Corpuscular Volume 91.3 fl Mean Corpuscular Hemoglobin 31.3 pg Mean Corpuscular Hemoglobin Concent 34.3 g/dl Red Cell Distribution Width 15.5 % Platelet Count 274 10^3/UL Mean Platelet Volume 8.9 fl Immature Granulocytes % 1.600 % Neutrophils % 69.6 % Lymphocytes % 18.6 % Monocytes % 8.6 % Eosinophils % 1.3 % Basophils % 0.3 % Nucleated Red Blood Cells % 0.0 /100WBC Immature Granulocytes # 0.270 10^3/ul Neutrophils # 11.6 10^3/ul Lymphocytes # 3.1 10^3/ul Monocytes # 1.4 10^3/ul Eosinophils # 0.2 10^3/ul Basophils # 0.1 10^3/ul Nucleated Red Blood Cells # 0.0 10^3/ul Prothrombin Time 13.7 Sec Prothrombin Time Ratio 1.1 INR International Normalized Ratio 1.04 Activated Partial Thromboplast Time Pending Sodium Level 122 mmol/L Potassium Level 4.8 mmol/L Chloride Level 91 mmol/L Carbon Dioxide Level 21 mmol/L Anion Gap 10 Blood Urea Nitrogen 19 mg/dl Creatinine 0.87 mg/dl Est Glomerular Filtrat Rate mL/min > 60 mL/min Glucose Level 108 mg/dl Calcium Level 8.7 mg/dl Total Bilirubin 1.7 mg/dl Direct Bilirubin 0.00 mg/dl Indirect Bilirubin 1.7 mg/dl Aspartate Amino Transf (AST/SGOT) 114 IU/L Alanine Aminotransferase (ALT/SGPT) 75 IU/L Alkaline Phosphatase 275 IU/L Ammonia < 9 umol/l Total Protein 6.3 g/dl Albumin 2.5 g/dl Globulin 3.80 g/dl Albumin/Globulin Ratio 0.65 Lipase 509 U/L Current Medications Medications Dose Sig/Jerrica Start Time Status Last (Trade) Ordered Route PRN Stop Time Admin Dose Reason Admin Morphine 4 mg ONCE STAT 03/22/19 DC 03/22/19 Sulfate IV 20:29 03/22/19 21:07 (morphine) 20:30 Ondansetron 4 mg ONCE STAT 03/22/19 DC 03/22/19 HCl (Zofran IV 20:29 03/22/19 21:07 Inj) 20:30 Procedures/MDM Patient is a 58-year-old female who presents with acute hyponatremia. Her sodium is 122. I will fluid restrict here in the emergency department. The patient's white blood cell count is 12 and has no fever and I doubt sepsis. The patient does have anemia with a hemoglobin of 7.9 but does not require transfusion at this time. The patient will be admitted to the care of Dr. Wiggins who has been contacted via [employer] as the patient has [employer] insurance. The patient will be admitted to a telemetry inpatient bed. Departure Diagnosis: Primary Impression: Hyponatremia Additional Impressions: Cirrhosis Hepatic cirrhosis type: unspecified hepatic cirrhosis Ascites presence: with ascites Qualified Codes: K74.60 - Unspecified cirrhosis of liver; R18.8 - Other ascites Generalized weakness Jaundice Anemia Anemia type: unspecified type Qualified Codes: D64.9 - Anemia, unspecified Condition: BRISEYDA Mobley MD March 22, 2019 22:04
[2019-03-22] MEDS ORDERED: ACETAMINOPHEN 325 MG TAB PO PRN (22:30)
[2019-03-22] MEDS ORDERED: ONDANSETRON 4 MG INJ IV PRN (22:30)
[2019-03-23] MEDS ORDERED: NACL 3% 500 ML IV SCH (08:30)
[2019-03-23] MEDS: LACTULOSE 30ML CUP PO SCH ×2 (08:39→21:00)
[2019-03-23] MEDS: SODIUM CHLORIDE 1 GM TAB PO SCH ×4 (08:40→21:00)
[2019-03-23] MEDS ORDERED: SPIRONOLACTONE 25 MG TAB PO SCH ×2 (09:00→10:00)
[2019-03-23] MEDS ORDERED: SPIRONOLACTONE 50 MG TAB PO SCH (10:00)
[2019-03-23] MEDS ORDERED: LACTULOSE 30ML CUP PO PRN (10:00)
--- NOTE | 2019-03-23 10:15 | HP ---
DATE OF ADMISSION: 03/22/2019 REASON FOR VISIT: Hyponatremia. HISTORY OF PRESENT ILLNESS: A 58-year-old female with a history of endstage alcoholic liver disease, cirrhosis and ascites, was sent to the Emergency Room by the primary care provider for hyponatremia. The patient reports having occasional nausea and vomiting. She denies any abdominal pain. She has been taking spironolactone and lactulose. Last paracentesis was on 03/17/2019. Initial evaluation revealed white blood cell count of 16.7, hemoglobin of 7.9, platelet count of 274,000 and a sodium of 122. Lipase was elevated at 509. Repeat hemoglobin on the following day improved to 8.3 and white blood cell count was down to 12.7. PAST MEDICAL HISTORY: 1. Endstage alcoholic liver disease. 2. Ascites. 3. Hepatic encephalopathy. MEDICATIONS PRIOR TO ADMISSION: 1. Spironolactone 50 mg p.o. daily. 2. Lasix 40 mg p.o. daily. 3. Lactulose 30 mL p.o. q.i.d. SOCIAL HISTORY: The patient has a long history of alcohol abuse. She lives at home. PHYSICAL EXAMINATION: GENERAL: Well-developed, well-nourished female who is in no apparent distress. VITAL SIGNS: Stable. She is afebrile. HEENT: Extraocular muscles are intact. Oropharynx is clear. NECK: Supple. LUNGS: Clear to auscultation bilaterally. CARDIAC: Regular rate and rhythm. No murmurs or gallops. ABDOMEN: Soft, nontender, nondistended, normoactive bowel sounds. EXTREMITIES: No clubbing, cyanosis or edema. NEUROLOGICAL: Grossly nonfocal. ASSESSMENT: 1. A 58-year-old female with hyponatremia. 2. End-stage alcoholic liver disease. 3. Ascites, status post paracentesis on 03/17/2019. 4. Hepatic encephalopathy, on Lactulose. PLAN: 1. Place in Med/Surg observation hypertonic saline. 2. Monitor her CBC and serum sodium. 3. Resume home medications. Dictated By: RACHEL BASS/CHESTER Conf#: [id number] DID#: [id number]
[2019-03-23] MEDS: FUROSEMIDE 40 MG TAB PO SCH (10:22)
[2019-03-23 14:04] VITALS: BP 101/57; PULSE 87; RESP 18
[2019-03-23 14:14] VITALS: PULSE 82
[2019-03-23 14:43] VITALS: Ht 165.1 cm; Wt 47.0 kg
[2019-03-23 15:11] VITALS: BP 136/73; PULSE 92; RESP 18
[2019-03-23 16:00] VITALS: PULSE 96
[2019-03-23 20:00] VITALS: BP 105/59; PULSE 112; PULSE 88; RESP 18
[2019-03-23] MEDS: AL HYDROX/MG HYDROX/SIMETH 30 ML CUP PO PRN (21:27)
[2019-03-23] MEDS: PANTOPRAZOLE (EC) 40 MG TAB PO SCH (22:08)
[2019-03-24] VITALS (11 sets, daily range): BP systolic 90–105; BP diastolic 50–59; PULSE 88–103; RESP 16–18
[2019-03-24] MEDS: AL HYDROX/MG HYDROX/SIMETH 30 ML CUP PO PRN ×2 (03:26→08:45)
[2019-03-24] MEDS: PANTOPRAZOLE (EC) 40 MG TAB PO SCH ×2 (05:26→17:29)
[2019-03-24] MEDS: LACTULOSE 30ML CUP PO SCH ×2 (08:37→20:59)
[2019-03-24] MEDS: SPIRONOLACTONE 50 MG TAB PO SCH (08:38)
[2019-03-24] MEDS: FUROSEMIDE 40 MG TAB PO SCH (08:38)
[2019-03-24] MEDS: SODIUM CHLORIDE 1 GM TAB PO SCH ×3 (08:38→20:59)
[2019-03-24] MEDS ORDERED: SOD CHLORIDE 0.9% 1,000 ML IV SCH (10:00)
[2019-03-24] MEDS ORDERED: NACL 3% 500 ML IV SCH ×2 (10:30→22:00)
--- NOTE | 2019-03-24 10:58 | PN ---
Date/Time of Note Date/Time of Note DATE: 03/24/19 TIME: 10:56 Subjective Doing well. Has mild abdominal pain. No nausea or vomiting. Objective Vitals Vital Signs Date Temp Pulse Resp B/P (MAP) Pulse Ox O2 O2 Flow FiO2 Time Delivery Rate 03/24/19 98 09:04 03/24/19 98.6 18 96/54 (68) 96 Room Air 07:44 Intake and Output 03/23/19 03/23/19 03/24/19 1515:00 23:00 07:00 IntakeIntake Total 300 ml 800 ml BalanceBalance 300 ml 800 ml Clear to auscultation bilaterally Regular rate and rhythm Soft mildly tender. No rebound or guarding Mild edema Nonfocal Results Result Diagram: 03/24/1954403/24/19544 Medications Medications Current Medications Sodium Chloride (Nacl) 1 gm TID PO ; Start 03/23/19 at 09:00 Lactulose (Enulose) 20 gm BID PO Last administered on 03/24/19 08:37; Admin Dose 20 GM; Start 03/23/19 at 09:00 Furosemide (Lasix) 40 mg DAILY PO Last administered on 03/24/19 08:38; Admin Dose 40 MG; Start 03/23/19 at 10:00 Lactulose (Enulose) 20 gm QID PRN PO CONSTIPATION; Start 03/23/19 at 10:00 Spironolactone (Aldactone) 50 mg DAILY PO Last administered on 03/24/19 08:38; Admin Dose 50 MG; Start 03/24/19 at 09:00 Al Hydrox/Mg Hydrox/Simethicone (Mag-Al Plus) 30 ml Q4H PRN PO GASTROINTESTINAL UPSET Last administered on 03/24/19 08:45; Admin Dose 30 ML; Start 03/23/19 at 21:19 Pantoprazole (Protonix Tab) 40 mg BID@06,18 PO Last administered on 03/24/19 05:26; Admin Dose 40 MG; Start 03/23/19 at 21:30 Sodium Chloride 500 ml @ 30 mls/hr [id number] IV ; Start 03/24/19 at 10:30; Stop 03/24/19 at 22:30 Sodium Chloride 1,000 ml @ 75 mls/hr [id number] IV ; Start 03/24/19 at 10:00 VTE Prophylaxis Risk score (from Nsg)>0 risk: 2 SCD applied (from Ns): Yes Lines/Catheters IV Catheter Type: Saline Lock Shannon in Place: No Assessment/Plan Assessment/Plan 58-year-old female with hyponatremia, slowly improving End-stage alcoholic liver disease, awaiting liver transplant Hepatic encephalopathy, on lactulose Malnutrition of moderate degree Resume hypertonic saline for additional 10 hours Continue Lasix and Aldactone Nephrology consultation was requested Monitor serum sodium RACHEL WIGGINS MD March 24, 2019 10:58
--- NOTE | 2019-03-24 21:53 | CONS ---
Assessment/Plan Assessment/Plan Assessment/Plan (Daily) 1. Severe hyponatremia likely due to Hypervolemic hyponatremia from decompensated Liver cirrhosis 2. Rule out SIADH 3. 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 symptomatic ascites 5. Anemia of CKD Plan: will d/c iVF NS pt received 3% saline yesterday overnight, will give another 3% saline at 30 cc/hr x 6 hr na chloride tablet 2 gram PO TID urine na, urine osmolarity Serum Osmolarity, uric acid, magnesium, CBC, CMP in AM labs Seen on telemetry, Thanks for consultation, I will continue to follow up Consultation Date/Type/Reason Admit Date/Time March 22, 2019 at 22:01 Date of Consultation: March 24, 2019 Type of Consult NEPHROLOGY Reason for Consultation Hyponatremia Requesting Provider: RACHEL WIGGINS MD Date/Time of Note DATE: 03/24/19 TIME: 21:52 Hx of Present Illness 58-year-old female with a history of endstage alcoholic liver disease, cirrhosis and ascites, was sent to the Emergency Room by the primary care provider for hyponatremia. The patient reports having occasional nausea and vomiting. She denies any abdominal pain. She has been taking spironolactone and lactulose. Last paracentesis was on 03/17/2019. Initial evaluation revealed white blood cell count of 16.7, hemoglobin of 7.9, platelet count of 274,000 and a sodium of 122. Lipase was elevated at 509. Repeat hemoglobin on the following day improved to 8.3 and white blood cell count was down to 12.7. pt has normal renal function on amdisisoin, Na was 122 on admission which improved to 124 only after 3% saline, then pt has been switched to IVF NS today AM. Renal has been consulted for Hyponatremia., rule out SIADH Pt has been continued on Lasix 40mg PO daily and Spironolactone 50mg PO daily pt had her last paracentesis on March Constitutional: poor po Eyes: no complaints ENT: no complaints Respiratory: shortness of breath Cardiovascular: no complaints Gastrointestinal: nausea, vomiting Genitourinary: no complaints Musculoskeletal: no complaints Skin: no complaints Neurologic: no complaints Endocrine: no complaints Lymphatic: no complaints Psychological: no complaints Immunologic: no complaints Past Medical History Medical History: other (ESLD, Liver Cirrhosis) Home Meds Active Scripts Sodium Chloride (Sodium Chloride) 1,000 Mg Tablet.doris, 1 GM PO TID for 10 Days, TAB Prov:RACHEL WIGGINS MD 02/03/19 Reported Medications Spironolactone* (Aldactone*) 50 Mg Tablet, 50 MG PO DAILY, #30 TAB 02/01/19 Lactulose* (Lactulose*) 10 Gm/15 Ml Solution, 30 ML PO QID PRN for CONSTIPATION, ML 01/28/19 Furosemide* (Furosemide*) 40 Mg Tablet, 40 MG PO DAILY, TAB 01/19/19 Discontinued Scripts Cephalexin* (Keflex*) 500 Mg Capsule, 500 MG PO QID for 7 Days, CAP Prov:YAMIL MCKEON MD 02/28/19 Medications Current Medications Lactulose (Enulose) 20 gm BID PO Last administered on 03/24/19at 20:59; Admin Dose 20 GM; Start 03/23/19 at 09:00 Furosemide (Lasix) 40 mg DAILY PO Last administered on 03/24/19at 08:38; Admin Dose 40 MG; Start 03/23/19 at 10:00 Lactulose (Enulose) 20 gm QID PRN PO CONSTIPATION; Start 03/23/19 at 10:00 Spironolactone (Aldactone) 50 mg DAILY PO Last administered on 03/24/19at 08:38; Admin Dose 50 MG; Start 03/24/19 at 09:00 Al Hydrox/Mg Hydrox/Simethicone (Mag-Al Plus) 30 ml Q4H PRN PO GASTROINTESTINAL UPSET Last administered on 03/24/19at 08:45; Admin Dose 30 ML; Start 03/23/19 at 21:19 Pantoprazole (Protonix Tab) 40 mg BID@06,18 PO Last administered on 03/24/19at 17:29; Admin Dose 40 MG; Start 03/23/19 at 21:30 Sodium Chloride 500 ml @ 30 mls/hr [id number] IV Last administered on 03/24/19at 10:30; Admin Dose 30 MLS/HR; Start 03/24/19 at 10:30; Stop 03/24/19 at 22:30 Sodium Chloride (Nacl) 2 gm TID PO ; Start 03/25/19 at 09:00; Status UNV Allergies: Coded Allergies: Penicillins (Unverified Allergy, Severe, RASH, 03/23/19) PER PT latex (Unverified Allergy, Severe, RASH, 03/23/19) PER PT Past Surgical History Past Surgical Hx: no surgical history Family History Significant Family History: no pertinent family hx Social History Alcohol Use: sober Smoking Status: Never smoker Drug Use: none Exam/Review of Systems Exam Vitals Vital Signs Date Temp Pulse Resp B/P (MAP) Pulse Ox O2 O2 Flow FiO2 Time Delivery Rate 03/24/19 99 20:26 03/24/19 98.1 16 105/57 99 20:00 (73) 03/24/19 Room Air 15:27 Intake and Output 03/23/19 03/23/19 03/24/19 1515:00 23:00 07:00 IntakeIntake Total 300 ml 800 ml BalanceBalance 300 ml 800 ml Constitutional: alert Psych: no complaints Head: normocephalic Eyes: nl conjunctiva ENMT: nl external ears & nose Neck: supple, non-tender Respiratory: congested cough, diminished breath sounds Cardiovascular: regular rate and rhythm, nl pulses Gastrointestinal: soft, ascites, distended Musculoskeletal: muscle weakness, swelling Extremities: normal pulses Neurological: WIRE MILL OPERATOR II-XII intact Lymph: nl lymph nodes Results Result Diagram: 03/24/19 0545 03/24/19 0545 Results 24hrs Laboratory Tests Test 03/24/19 05:45 White Blood Count 11.9 H Red Blood Count 2.43 L Hemoglobin 7.6 L Hematocrit 22.5 L Mean Corpuscular Volume 92.6 Mean Corpuscular Hemoglobin 31.3 Mean Corpuscular Hemoglobin Concent 33.8 Red Cell Distribution Width 15.8 H Platelet Count 256 Mean Platelet Volume 9.1 Immature Granulocytes % 1.400 H Neutrophils % 63.1 Lymphocytes % 22.7 Monocytes % 11.2 H Eosinophils % 1.3 Basophils % 0.3 Nucleated Red Blood Cells % 0.0 Immature Granulocytes # 0.170 H Neutrophils # 7.5 Lymphocytes # 2.7 Monocytes # 1.3 H Eosinophils # 0.2 Basophils # 0.0 Nucleated Red Blood Cells # 0.0 Sodium Level 125 L Potassium Level 4.1 Chloride Level 97 Carbon Dioxide Level 22 Anion Gap 6 Blood Urea Nitrogen 14 Creatinine 0.79 Est Glomerular Filtrat Rate mL/min > 60 Glucose Level 88 Calcium Level 8.2 L Medications Medication Current Medications Lactulose (Enulose) 20 gm BID PO Last administered on 03/24/19at 20:59; Admin Dose 20 GM; Start 03/23/19 at 09:00 Furosemide (Lasix) 40 mg DAILY PO Last administered on 03/24/19 08:38; Admin Dose 40 MG; Start 03/23/19 at 10:00 Lactulose (Enulose) 20 gm QID PRN PO CONSTIPATION; Start 03/23/19 at 10:00 Spironolactone (Aldactone) 50 mg DAILY PO Last administered on 03/24/19at 08:38; Admin Dose 50 MG; Start 03/24/19 at 09:00 Al Hydrox/Mg Hydrox/Simethicone (Mag-Al Plus) 30 ml Q4H PRN PO GASTROINTESTINAL UPSET Last administered on 03/24/19 08:45; Admin Dose 30 ML; Start 03/23/19 at 21:19 Pantoprazole (Protonix Tab) 40 mg BID@06,18 PO Last administered on 03/24/19 17:29; Admin Dose 40 MG; Start 03/23/19 at 21:30 Sodium Chloride 500 ml @ 30 mls/hr [id number] IV Last administered on 03/24/19at 10:30; Admin Dose 30 MLS/HR; Start 03/24/19 at 10:30; Stop 03/24/19 at 22:30 Sodium Chloride (Nacl) 2 gm TID PO ; Start 03/25/19 at 09:00; Status MUNIR PENG MD March 24, 2019 21:53
[2019-03-24] MEDS: ALBUMIN HUMAN 25% 100 ML IV SCH (22:00)
[2019-03-25] VITALS (12 sets, daily range): BP systolic 89–103; BP diastolic 52–55; PULSE 73–108; RESP 18–20
[2019-03-25] MEDS: PANTOPRAZOLE (EC) 40 MG TAB PO SCH ×2 (05:59→18:11)
[2019-03-25] MEDS: ALBUMIN HUMAN 25% 100 ML IV SCH ×2 (06:00→14:00)
[2019-03-25] MEDS: SODIUM CHLORIDE 1 GM TAB PO SCH ×3 (08:50→20:39)
[2019-03-25] MEDS: LACTULOSE 30ML CUP PO SCH ×2 (08:50→20:39)
[2019-03-25] MEDS ORDERED: SOD CHLORIDE 0.9% 250 ML IV ONE (09:00)
[2019-03-25] MEDS: SPIRONOLACTONE 50 MG TAB PO SCH (09:22)
[2019-03-25] MEDS: FUROSEMIDE 40 MG TAB PO SCH (09:22)
--- NOTE | 2019-03-25 09:24 | CONS ---
Assessment/Plan Assessment/Plan Assessment/Plan (Daily) 1. Severe hyponatremia likely due to Hypervolemic hyponatremia from decompensated Liver cirrhosis 2. Rule out SIADH 3. 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 symptomatic ascites 5. Anemia of CKD Plan: s/p 3 % Hypertonic saline x 2, Na improved to 129, K normal, pt is on Na chloride tablet 1 gram PO TID plan for paracentesis todapy if there is fluid to remove will follow up Consultation Date/Type/Reason Admit Date/Time March 22, 2019 at 22:01 Initial Consult Date 03/24/19 Type of Consult NEPHROLOGY Requesting Provider: RACHEL WIGGINS MD Date/Time of Note DATE: 03/25/19 TIME: 09:24 24 HR Interval Summary Free Text/Dictation Na improved to 129, Pt is ordered to have paracentesis, on Na chloride tablet 1 gram PO TID Exam/Review of Systems Exam Vitals Vital Signs Date Temp Pulse Resp B/P (MAP) Pulse Ox O2 O2 Flow FiO2 Time Delivery Rate 03/25/19 98.5 108 18 97/55 (69) 100 Room Air 07:15 Intake and Output 03/24/19 03/24/19 03/25/19 1515:00 23:00 07:00 IntakeIntake Total 900 ml 500 ml BalanceBalance 900 ml 500 ml Exam Constitutional: alert Respiratory: congested cough, diminished breath sounds Cardiovascular: regular rate and rhythm, nl pulses Gastrointestinal: soft, ascites, distended Musculoskeletal: muscle weakness, swelling Extremities: normal pulses Neurological: PROP SETTER II-XII intact Lymph: nl lymph nodes Results Result Diagram: 03/25/19 0812 03/25/19 0621 Results 24hrs Laboratory Tests Test 03/25/19 06:21 03/25/19 08:12 White Blood Count 7.5 # Red Blood Count 2.06 L Hemoglobin 6.5 *L 6.8 *L Hematocrit 19.1 L 19.9 L Mean Corpuscular Volume 92.7 Mean Corpuscular Hemoglobin 31.6 Mean Corpuscular Hemoglobin Concent 34.0 Red Cell Distribution Width 15.6 H Platelet Count 192 # Mean Platelet Volume 9.0 Immature Granulocytes % 1.100 H Neutrophils % 63.8 Segmented Neutrophils % (Manual) 75 Lymphocytes % 25.0 Lymphocytes % (Manual) 23 Monocytes % 8.6 Monocytes % (Manual) 1 Eosinophils % 1.1 Eosinophils % (Manual) 1 Basophils % 0.4 Nucleated Red Blood Cells % 0.0 Immature Granulocytes # 0.080 H Neutrophils # 4.8 Lymphocytes (Manual) 1.7 Lymphocytes # 1.9 Monocytes # 0.6 Monocytes # (Manual) 0.0 L Eosinophils # 0.1 Basophils # 0.0 Nucleated Red Blood Cells # 0.0 Pathologist Review (Hematology) YES Platelet Estimate NORMAL Polychromasia 3+ Anisocytosis 1+ Sodium Level 129 L Potassium Level 4.0 Chloride Level 100 Carbon Dioxide Level 22 Anion Gap 7 Blood Urea Nitrogen 13 Creatinine 0.77 Est Glomerular Filtrat Rate mL/min > 60 Glucose Level 80 Osmolality 260 L Uric Acid 5.3 Calcium Level 8.5 Phosphorus Level 2.4 L Magnesium Level 1.8 Medications Medication Current Medications Lactulose (Enulose) 20 gm BID PO Last administered on 03/24/19 20:59; Admin Dose 20 GM; Start 03/23/19 at 09:00 Furosemide (Lasix) 40 mg DAILY PO Last administered on 03/25/19 09:22; Admin Dose 40 MG; Start 03/23/19 at 10:00 Lactulose (Enulose) 20 gm QID PRN PO CONSTIPATION; Start 03/23/19 at 10:00 Spironolactone (Aldactone) 50 mg DAILY PO Last administered on 03/25/19 09:22; Admin Dose 50 MG; Start 03/24/19 at 09:00 Al Hydrox/Mg Hydrox/Simethicone (Mag-Al Plus) 30 ml Q4H PRN PO GASTROINTESTINAL UPSET Last administered on 03/24/19at 08:45; Admin Dose 30 ML; Start 03/23/19 at 21:19 Pantoprazole (Protonix Tab) 40 mg BID@06,18 PO Last administered on 03/25/19 05:59; Admin Dose 40 MG; Start 03/23/19 at 21:30 Sodium Chloride (Nacl) 2 gm TID PO ; Start 03/25/19 at 09:00 Albumin Human 100 ml @ 100 mls/hr Q8H IV Last administered on 03/25/19 06:00; Admin Dose 100 MLS/HR; Start 03/24/19 at 22:00; Stop 03/25/19 at 14:59 Sodium Chloride 250 ml @ 250 mls/hr Q1H ONCE IV ; Start 03/25/19 at 09:00; Stop 03/25/19 at 09:59; Status UNV Potassium Phosphate 15 mm/ Sodium Chloride 255 ml @ 63.75 mls/ hr ONCE ONCE IVPB ; Start 03/25/19 at 09:30; Stop 03/25/19 at 13:29; Status UNV MUNIR ESCALANTE MD March 25, 2019 09:24
[2019-03-25] MEDS ORDERED: POTASSIUM PHOSPHATE 15 MM in SOD CHLORIDE 0.9% 250 ML IVPB ONE (10:30)
[2019-03-25] MEDS ORDERED: PANT40TA3 PO (11:08)
--- NOTE | 2019-03-25 11:09 | PDOCDIS ---
Discharge Instructions CONDITION [id number] Patient Condition: [id number] Good HOME CARE INSTRUCTIONS: [id number] Diet Instructions: [id number] Regular ACTIVITY: [id number] Activity Restrictions: [id number] No Restrictions FOLLOW UP/APPOINTMENTS Follow-up Plan pcp 1 week [facility] RACHEL DAVIS MD March 25, 2019 11:08
[2019-03-25] MEDS ORDERED: FUROSEMIDE 40 MG INJ IV ONE (14:30)
[2019-03-25] MEDS: CEPASTAT LOZENGE MT PRN ×3 (14:35→21:28)
[2019-03-25] MEDS ORDERED: ALBUMIN HUMAN 25% 100 ML IV SCH (20:45)
[2019-03-25] MEDS: AL HYDROX/MG HYDROX/SIMETH 30 ML CUP PO PRN (21:28)
[2019-03-26] VITALS (14 sets, daily range): BP systolic 85–107; BP diastolic 50–56; PULSE 68–111; RESP 18–21
--- NOTE | 2019-03-26 02:32 | DS ---
DATE OF ADMISSION: 03/22/2019 DATE OF DISCHARGE: DISCHARGE DIAGNOSES: 1. A 58-year-old female with hyponatremia, improved. 2. End-stage alcoholic liver disease. 3. Recurrent ascites. 4. Chronic anemia. HOSPITAL COURSE: A 58-year-old female well known to me from previous admissions with end-stage alcoh olic liver disease and recurrent ascites, was referred to the emergency room for hyponatremia. Serum sodium was as low as 122. The patient received hypertonic saline with slow improvement in her serum sodium. Pin Ticket Machine Operator, Dr. Moss, was consulted. Hypertonic saline was continued. Serum sodium on the day of discharge was 129. Osmolality was low at 260. There was a drop in her hemoglobin to 6.8. There was no hematemesis, bright red blood per rectum or melena. I ordered 2 units of packed RBC. I also started her on Protonix. The patient will undergo repeat paracentesis prior to discharge. The patient is being evaluated at [facility] for liver transplant. The case was discussed with her son. He r appointment will be rescheduled and she will follow up with her PCP as well as [facility] as outpatient. The patient is in stable condition for discharge the following paracentesis and packed RBC transfusio n. Dictated By: RACHEL WIGGINS MD SK/NTS Conf#: [id number] DID#: [id number] CC: ESTHER HURTADO MD;*EndCC*
[2019-03-26] MEDS: PANTOPRAZOLE (EC) 40 MG TAB PO SCH ×2 (06:39→17:47)
[2019-03-26] MEDS: LACTULOSE 30ML CUP PO SCH ×2 (09:00→20:01)
[2019-03-26] MEDS: SPIRONOLACTONE 50 MG TAB PO SCH (09:42)
[2019-03-26] MEDS: SODIUM CHLORIDE 1 GM TAB PO SCH ×3 (09:43→20:01)
[2019-03-26] MEDS: FUROSEMIDE 40 MG TAB PO SCH (09:43)
[2019-03-26] MEDS: CEPASTAT LOZENGE MT PRN (10:43)
[2019-03-26] MEDS ORDERED: [UNRECOGNIZED DRUG - CODE] PO (11:11)
[2019-03-26] MEDS: AL HYDROX/MG HYDROX/SIMETH 30 ML CUP PO PRN ×3 (12:12→21:40)
--- NOTE | 2019-03-26 13:01 | CONS ---
Assessment/Plan Assessment/Plan Assessment/Plan (Daily) 1. Severe hyponatremia likely due to Hypervolemic hyponatremia from decompensated Liver cirrhosis 2. Rule out SIADH 3. 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 symptomatic ascites 5. Anemia of CKD Plan: s/p 3 % Hypertonic saline x 2, Na 128 today , K normal, Na chloride tablet 1 gram PO BID on discharge follow up with me in clinic in 1-2 week As per Nursing - US attempted, but not enough fluid to remove will follow up Consultation Date/Type/Reason Admit Date/Time March 22, 2019 at 22:01 Initial Consult Date 03/24/19 Type of Consult NEPHROLOGY Requesting Provider: RACHEL WIGGINS MD Date/Time of Note DATE: 03/26/19 TIME: 13:01 24 HR Interval Summary Free Text/Dictation Na 128, K normal, pt still c/o abodminal bloating and distension, Bp stable Exam/Review of Systems Exam Vitals Vital Signs Date Temp Pulse Resp B/P (MAP) Pulse Ox O2 O2 Flow FiO2 Time Delivery Rate 03/26/19 98.4 87 18 107/56 100 Room Air 11:43 (73) Intake and Output 03/25/19 03/25/19 03/26/19 1515:00 23:00 07:00 IntakeIntake Total 800 ml 500 ml BalanceBalance 800 ml 500 ml Exam Constitutional: alert Respiratory: congested cough, diminished breath sounds Cardiovascular: regular rate and rhythm, nl pulses Gastrointestinal: soft, ascites, distended Musculoskeletal: muscle weakness, swelling Extremities: normal pulses Results Result Diagram: 03/26/19 0812 03/26/19 0812 Results 24hrs Laboratory Tests Test 03/26/19 07:28 03/26/19 08:12 Lab Scanned Report BLOOD TRANSFUSION Hemoglobin 10.0 #L Sodium Level 128 L Potassium Level 4.0 Chloride Level 97 Carbon Dioxide Level 20 L Anion Gap 11 Blood Urea Nitrogen 10 Creatinine 0.75 Est Glomerular Filtrat Rate mL/min > 60 Glucose Level 125 # Calcium Level 8.6 Medications Medication Current Medications Lactulose (Enulose) 20 gm BID PO Last administered on 03/24/19at 20:59; Admin Dose 20 GM; Start 03/23/19 at 09:00 Furosemide (Lasix) 40 mg DAILY PO Last administered on 03/26/19at 09:43; Admin Dose 40 MG; Start 03/23/19 at 10:00 Lactulose (Enulose) 20 gm QID PRN PO CONSTIPATION; Start 03/23/19 at 10:00 Spironolactone (Aldactone) 50 mg DAILY PO Last administered on 03/26/19 09:42; Admin Dose 50 MG; Start 03/24/19 at 09:00 Al Hydrox/Mg Hydrox/Simethicone (Mag-Al Plus) 30 ml Q4H PRN PO GASTROINTESTINAL UPSET Last administered on 03/26/19 12:12; Admin Dose 30 ML; Start 03/23/19 at 21:19 Pantoprazole (Protonix Tab) 40 mg BID@06,18 PO Last administered on 03/26/19 06:39; Admin Dose 40 MG; Start 03/23/19 at 21:30 Sodium Chloride (Nacl) 2 gm TID PO Last administered on 03/26/19 09:43; Admin Dose 2 GM; Start 03/25/19 at 09:00 Phenol (Cepastat Lozenge) 1 lozenge Q1H PRN MT COUGH Last administered on 03/26/19 10:43; Admin Dose 1 LOZENGE; Start 03/25/19 at 14:30 MUNIR ESCALANTE MD March 26, 2019 13:01
[2019-03-26] MEDS ORDERED: LIDOCAINE 1% (MPF) 5 ML VIAL ONE (16:35)
[2019-03-26] MEDS ORDERED: ALBUMIN HUMAN 25% 50 ML IV ONE (17:30)
[2019-03-26] MEDS ORDERED: SOD CHLORIDE 0.9% 500 ML IV ONE ×2 (20:00→22:00)
[2019-03-27] VITALS: PULSE 91
[2019-03-27 03:38] VITALS: BP 89/47; PULSE 93; RESP 17
[2019-03-27] MEDS: AL HYDROX/MG HYDROX/SIMETH 30 ML CUP PO PRN ×2 (03:45→12:39)
[2019-03-27] MEDS ORDERED: SOD CHLORIDE 0.9% 500 ML IV ONE (04:00)
[2019-03-27 04:19] VITALS: PULSE 110
[2019-03-27] MEDS: PANTOPRAZOLE (EC) 40 MG TAB PO SCH (04:50)
[2019-03-27 07:10] VITALS: BP 99/57; PULSE 91; RESP 18
[2019-03-27] MEDS: FUROSEMIDE 40 MG TAB PO SCH (08:49)
[2019-03-27] MEDS: SPIRONOLACTONE 50 MG TAB PO SCH (08:49)
[2019-03-27] MEDS: SODIUM CHLORIDE 1 GM TAB PO SCH ×2 (08:49→12:17)
[2019-03-27] MEDS: LACTULOSE 30ML CUP PO SCH (08:49)
[2019-03-27 08:57] VITALS: PULSE 85
[2019-03-27 11:37] VITALS: BP 94/53; PULSE 69; RESP 18
--- NOTE | 2019-03-27 12:09 | PN ---
Date/Time of Note Date/Time of Note DATE: 03/27/19 TIME: 12:07 Assessment/Plan VTE Prophylaxis Risk score (from Ns)>0 risk: 2 SCD applied (from Ns): No SCD contraindicated: low risk/ambulating Pharmacological prophylaxis: NA/contraindicated Pharm contraindication: low risk/ambulating Lines/Catheters IV C[facility]ter Type [facility]from [facility] Saline Lock Urinary Cath still in place: No Assessment/Plan Assessment/Plan 1. cirrhosis, s/p paracentesis 9b) hypotension follwoing parcentesis, improived with ivf 2. chronic hyponatremia, related to cirrhosis, Na stable at 128 x2 days 3. d/c home Result Diagram: 03/26/19 0812 03/27/19 1059 Results 24hrs Laboratory Tests Test 03/27/19 10:59 Sodium Level 128 L Potassium Level 4.3 Chloride Level 101 Carbon Dioxide Level 20 L Anion Gap 7 Blood Urea Nitrogen 9 Creatinine 0.69 Est Glomerular Filtrat Rate mL/min > 60 Glucose Level 130 Calcium Level 8.6 Total Bilirubin 1.8 H Direct Bilirubin 0.00 Indirect Bilirubin 1.8 H Aspartate Amino Transf (AST/SGOT) 56 H Alanine Aminotransferase (ALT/SGPT) 42 Alkaline Phosphatase 171 H Total Protein 5.7 L Albumin 2.7 L Globulin 3.00 Albumin/Globulin Ratio 0.90 Subjective 24 Hr Interval Summary Free Text/Dictation no complaints, wants to go home feels better Exam/Review of Systems Exam Vitals Vital Signs Date Temp Pulse Resp B/P (MAP) Pulse Ox O2 O2 Flow FiO2 Time Delivery Rate 03/27/19 98.0 69 18 94/53 (67) 99 11:37 03/26/19 Room Air 15:39 Intake and Output 03/26/19 03/26/19 03/27/19 1515:00 23:00 07:00 IntakeIntake Total 600 ml 2100 ml BalanceBalance 600 ml 2100 ml Exam nad, ctab, soft nt Results Results 24hrs Laboratory Tests Test 03/27/19 10:59 Sodium Level 128 L Potassium Level 4.3 Chloride Level 101 Carbon Dioxide Level 20 L Anion Gap 7 Blood Urea Nitrogen 9 Creatinine 0.69 Est Glomerular Filtrat Rate mL/min > 60 Glucose Level 130 Calcium Level 8.6 Total Bilirubin 1.8 H Direct Bilirubin 0.00 Indirect Bilirubin 1.8 H Aspartate Amino Transf (AST/SGOT) 56 H Alanine Aminotransferase (ALT/SGPT) 42 Alkaline Phosphatase 171 H Total Protein 5.7 L Albumin 2.7 L Globulin 3.00 Albumin/Globulin Ratio 0.90 Medications Medication Current Medications Lactulose (Enulose) 20 gm BID PO Last administered on 03/24/19at 20:59; Admin Dose 20 GM; Start 03/23/19 at 09:00 Furosemide (Lasix) 40 mg DAILY PO Last administered on 03/26/19 09:43; Admin Dose 40 MG; Start 03/23/19 at 10:00 Lactulose (Enulose) 20 gm QID PRN PO CONSTIPATION; Start 03/23/19 at 10:00 Spironolactone (Aldactone) 50 mg DAILY PO Last administered on 03/27/19 08:49; Admin Dose 50 MG; Start 03/24/19 at 09:00 Al Hydrox/Mg Hydrox/Simethicone (Mag-Al Plus) 30 ml Q4H PRN PO GASTROINTESTINAL UPSET Last administered on 03/27/19 03:45; Admin Dose 30 ML; Start 03/23/19 at 21:19 Pantoprazole (Protonix Tab) 40 mg BID@06,18 PO Last administered on 03/27/19 04:50; Admin Dose 40 MG; Start 03/23/19 at 21:30 Sodium Chloride (Nacl) 2 gm TID PO Last administered on 03/27/19 08:49; Admin Dose 2 GM; Start 03/25/19 at 09:00 Phenol (Cepastat Lozenge) 1 lozenge Q1H PRN MT COUGH Last administered on 10:43; Admin Dose 1 LOZENGE; Start 03/25/19 at 14:30 ANDREW MAHONEY MD March 27, 2019 12:09
--- NOTE | 2019-03-27 12:13 | DS ---
Date/Time of Note Date/Time of Note DATE: 03/27/19 TIME: 12:11 Discharge Summary Admission/Discharge Info Admit Date/Time March 22, 2019 at 22:01 Discharge Date/Time Hospital Course See Dr Romel espinosa summary for more detail addndum: patient discharge held yesterday related to hypotension, IVF given and BP improves, now wants to go home Home Meds Active Scripts Sodium Chloride (Sodium Chloride) 1,000 Mg Tablet.doris, 2 GM PO TID for 30 Days, TAB Prov:RACHEL WIGGINS MD 03/26/19 Pantoprazole* (Protonix*) 40 Mg Tablet.dr, 40 MG PO DAILY for 30 Days, TAB Prov:RACHEL WIGGINS MD 03/25/19 Reported Medications Spironolactone* (Aldactone*) 50 Mg Tablet, 50 MG PO DAILY, #30 TAB 02/01/19 Lactulose* (Lactulose*) 10 Gm/15 Ml Solution, 30 ML PO QID PRN for CONSTIPATION, ML 01/28/19 Furosemide* (Furosemide*) 40 Mg Tablet, 40 MG PO DAILY, TAB 01/19/19 Discontinued Scripts Cephalexin* (Keflex*) 500 Mg Capsule, 500 MG PO QID for 7 Days, CAP Prov:YAMIL MCKEON MD 02/28/19 Sodium Chloride (Sodium Chloride) 1,000 Mg Tablet.doris, 1 GM PO TID for 10 Days, TAB Prov:RACEHL WIGGINS MD 02/03/19 Follow-up Plan pcp 1 week [facility] Primary Care Provider Not On Staff Doctor Pending Labs Laboratory Tests Test 03/27/19 10:59 Sodium Level 128 mmol/L (135-144) Potassium Level 4.3 mmol/L (3.5-5.1) Chloride Level 101 mmol/L (97-110) Carbon Dioxide Level 20 mmol/L (21-31) Anion Gap 7 (5-13) Blood Urea Nitrogen 9 mg/dl (7-20) Creatinine 0.69 mg/dl (0.44-1.00) Est Glomerular Filtrat Rate mL/min > 60 mL/min (>60) Glucose Level 130 mg/dl (70-220) Calcium Level 8.6 mg/dl (8.4-10.2) Total Bilirubin 1.8 mg/dl (0.2-1.3) Direct Bilirubin 0.00 mg/dl (0.00-0.20) Indirect Bilirubin 1.8 mg/dl (0-1.1) Aspartate Amino Transf (AST/SGOT) 56 IU/L (15-46) Alanine Aminotransferase (ALT/SGPT) 42 IU/L (13-69) Alkaline Phosphatase 171 IU/L (42-121) Total Protein 5.7 g/dl (6.1-8.1) Albumin 2.7 g/dl (3.3-4.9) Globulin 3.00 g/dl (1.3-3.2) Albumin/Globulin Ratio 0.90 ANDREW MAHONEY MD March 27, 2019 12:13
--- NOTE | 2019-03-27 13:18 | CONS ---
Assessment/Plan Assessment/Plan Assessment/Plan (Daily) 1. Severe hyponatremia likely due to Hypervolemic hyponatremia from decompensated Liver cirrhosis 2. Rule out SIADH 3. 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 symptomatic ascites 5. Anemia of CKD Plan: s/p 3 % Hypertonic saline x 2, Na 128 today , K normal, Na chloride tablet 1 gram PO BID on discharge follow up with me in clinic in 1-2 week As per Nursing - US attempted, but not enough fluid to remove will follow up Consultation Date/Type/Reason Admit Date/Time March 22, 2019 at 22:01 Initial Consult Date 03/24/19 Type of Consult NEPHROLOGY Requesting Provider: RACHEL WIGGINS MD Date/Time of Note DATE: 03/27/19 TIME: 13:18 Exam/Review of Systems Exam Vitals Vital Signs Date Temp Pulse Resp B/P (MAP) Pulse Ox O2 O2 Flow FiO2 Time Delivery Rate 03/27/19 98.0 69 18 94/53 (67) 99 11:37 03/26/19 Room Air 15:39 Intake and Output 03/26/19 03/26/19 03/27/19 1515:00 23:00 07:00 IntakeIntake Total 600 ml 2100 ml BalanceBalance 600 ml 2100 ml Results Result Diagram: 03/26/19 0812 03/27/19 1059 Results 24hrs Laboratory Tests Test 03/27/19 10:59 Sodium Level 128 L Potassium Level 4.3 Chloride Level 101 Carbon Dioxide Level 20 L Anion Gap 7 Blood Urea Nitrogen 9 Creatinine 0.69 Est Glomerular Filtrat Rate mL/min > 60 Glucose Level 130 Calcium Level 8.6 Total Bilirubin 1.8 H Direct Bilirubin 0.00 Indirect Bilirubin 1.8 H Aspartate Amino Transf (AST/SGOT) 56 H Alanine Aminotransferase (ALT/SGPT) 42 Alkaline Phosphatase 171 H Total Protein 5.7 L Albumin 2.7 L Globulin 3.00 Albumin/Globulin Ratio 0.90 Medications Medication Current Medications Lactulose (Enulose) 20 gm BID PO Last administered on 03/24/19at 20:59; Admin Dose 20 GM; Start 03/23/19 at 09:00 Furosemide (Lasix) 40 mg DAILY PO Last administered on 03/26/19at 09:43; Admin Dose 40 MG; Start 03/23/19 at 10:00 Lactulose (Enulose) 20 gm QID PRN PO CONSTIPATION; Start 03/23/19 at 10:00 Spironolactone (Aldactone) 50 mg DAILY PO Last administered on 03/27/19at 08:49; Admin Dose 50 MG; Start 03/24/19 at 09:00 Al Hydrox/Mg Hydrox/Simethicone (Mag-Al Plus) 30 ml Q4H PRN PO GASTROINTESTINAL UPSET Last administered on 03/27/19at 12:39; Admin Dose 30 ML; Start 03/23/19 at 21:19 Pantoprazole (Protonix Tab) 40 mg BID@06,18 PO Last administered on 03/27/19 04:50; Admin Dose 40 MG; Start 03/23/19 at 21:30 Sodium Chloride (Nacl) 2 gm TID PO Last administered on 03/27/19at 12:17; Admin Dose 2 GM; Start 03/25/19 at 09:00 Phenol (Cepastat Lozenge) 1 lozenge Q1H PRN MT COUGH Last administered on 03/26/19at 10:43; Admin Dose 1 LOZENGE; Start 03/25/19 at 14:30 MUNIR ESCALANTE MD March 27, 2019 13:18
== END 2019-03-27 13:54 | disposition home or self-care (01) | DRG 644 ==
LOC: E/R 18:23 → TEL 22:01 → EDBEDREQ 22:11
PROVIDERS: ADMIT Internal Medicine; ATTEND Internal Medicine
PROC: 30233N1 Transfusion of Nonautologous Red Blood Cells into Peripheral Vein, Percutaneous Approach (ICD-10-PCS; principal; 2019-03-25)
PROC: 0W9G3ZZ Drainage of Peritoneal Cavity, Percutaneous Approach (ICD-10-PCS; 2019-03-26)
DX: E22.2 Syndrome of inappropriate secretion of antidiuretic hormone (principal); E44.0 Moderate protein-calorie malnutrition; Z68.1 Body mass index [BMI] 19.9 or less, adult; I95.9 Hypotension, unspecified; K70.31 Alcoholic cirrhosis of liver with ascites; K70.40 Alcoholic hepatic failure without coma; D64.9 Anemia, unspecified; F10.10 Alcohol abuse, uncomplicated; Y90.9 Presence of alcohol in blood, level not specified; R11.2 Nausea with vomiting, unspecified; N18.9 Chronic kidney disease, unspecified; D63.1 Anemia in chronic kidney disease
CPT/HCPCS: 36415; 36430; 80048; 80053; 80076; 81001; 81003; 82140; 83690; 83735; 83930; 84100; 84560; 85014; 85018; 85025; 85610; 85730; 86850; 86900; 86901; 86920; 96374; 96375; J1940; J2270; J2405; J7030; J7040; J7050; P9016; P9047

== ENCOUNTER 2019-04-18 22:03 | Inpatient (IN) | payer OTHER ==
[~2019-04-18] VITALS: Ht 165.1 cm; Wt 49.3 kg
[~2019-04-18 22:03] MED LIST changes: -CEPH-443 PO; +PANT40TA3 PO
[2019-04-18] MEDS ORDERED: SOD CHLORIDE 0.9% 500 ML IV STA (23:46)
[2019-04-19] VITALS (8 sets, daily range): BP systolic 97–103; BP diastolic 54–59; PULSE 93–106; RESP 17–18; Ht 165.1 cm; Wt 49.3 kg
[2019-04-19] MEDS ORDERED: ACETAMINOPHEN 325 MG TAB PO PRN (01:00)
[2019-04-19] MEDS ORDERED: LACTULOSE 30ML CUP PO PRN (01:00)
[2019-04-19] MEDS ORDERED: DOCUSATE SODIUM 100 MG CAP PO PRN (01:00)
[2019-04-19] MEDS ORDERED: NACL 0.9% 3 ML SYG IV SCH (01:00)
--- NOTE | 2019-04-19 02:01 | ERD ---
ER Documentation Chief Complaint Chief Complaint MD STEVEN REQUESTS LAB WORK HPI This is a 58-year-old female whose primary care physician is uncertain when he noted that his she has severe hyponatremia. According the patient, she is felt very foggy over the past few days. Patient has a history of recurrent hyponatremia likely secondary to end-stage liver disease. She denies any fevers chills nausea vomiting. Denies any focal neurological complaints otherwise. ROS All systems reviewed and are negative except as per history of present illness. Medications Home Meds Active Scripts Sodium Chloride (Sodium Chloride) 1,000 Mg Tablet.doris, 2 GM PO TID for 30 Days, TAB Prov:RACHEL WIGGINS MD 03/26/19 Pantoprazole* (Protonix*) 40 Mg Tablet.dr, 40 MG PO DAILY for 30 Days, TAB Prov:RACHEL WIGGINS MD 03/25/19 Reported Medications Spironolactone* (Aldactone*) 50 Mg Tablet, 50 MG PO DAILY, #30 TAB 02/01/19 Lactulose* (Lactulose*) 10 Gm/15 Ml Solution, 30 ML PO QID PRN for CONSTIPATION, ML 01/28/19 Furosemide* (Furosemide*) 40 Mg Tablet, 40 MG PO DAILY, TAB 01/19/19 Allergies Allergies: Coded Allergies: Penicillins (Unverified Allergy, Severe, RASH, 03/23/19) PER PT latex (Unverified Allergy, Severe, RASH, 03/23/19) PER PT PMhx/Soc History of Surgery: Yes (BREAST AUGMENTATION) Anesthesia Reaction: No Hx Neurological Disorder: No Hx Respiratory Disorders: No Hx Cardiac Disorders: No Hx Psychiatric Problems: No Hx Miscellaneous Medical Probl: Yes (END STAGE LIVER FAILURE) Hx Alcohol Use: Yes Hx Substance Use: No Hx Tobacco Use: No Smoking Status: Never smoker Physical Exam Vitals Vital Signs Date Temp Pulse Resp B/P (MAP) Pulse Ox O2 O2 Flow FiO2 Time Delivery Rate 04/18/19 96 16 98/62 (74) 100 Room Air 22:35 04/18/19 97.9 101 20 116/54 100 22:09 (74) Physical Exam Const: No acute distress Head: Atraumatic Eyes: Normal Conjunctiva ENT: Normal External Ears, Nose and Mouth. Neck: Full range of motion. No meningismus. Resp: Clear to auscultation bilaterally Cardio: Regular rate and rhythm, no murmurs Abd: Soft, non tender, non distended. Normal bowel sounds Skin: No petechiae or rashes Back: No midline or flank tenderness Ext: No cyanosis, or edema Neur: Awake and alert Psych: Normal Mood and Affect Result Diagram: 04/18/19225304/18/192253 Results 24 hrs Laboratory Tests Test 04/18/19 22:52 04/18/19 22:54 04/19/19 00:56 Bedside Glucose 109 mg/dL White Blood Count 8.8 10^3/ul Red Blood Count 3.15 10^6/ul Hemoglobin 9.7 g/dl Hematocrit 27.3 % Mean Corpuscular Volume 86.7 fl Mean Corpuscular Hemoglobin 30.8 pg Mean Corpuscular Hemoglobin Concent 35.5 g/dl Red Cell Distribution Width 14.5 % Platelet Count 284 10^3/UL Mean Platelet Volume 9.0 fl Immature Granulocytes % 0.700 % Neutrophils % 62.9 % Lymphocytes % 22.8 % Monocytes % 12.5 % Eosinophils % 0.8 % Basophils % 0.3 % Nucleated Red Blood Cells % 0.0 /100WBC Immature Granulocytes # 0.060 10^3/ul Neutrophils # 5.5 10^3/ul Lymphocytes # 2.0 10^3/ul Monocytes # 1.1 10^3/ul Eosinophils # 0.1 10^3/ul Basophils # 0.0 10^3/ul Nucleated Red Blood Cells # 0.0 10^3/ul Sodium Level 120 mmol/L Potassium Level 4.2 mmol/L Chloride Level 88 mmol/L Carbon Dioxide Level 24 mmol/L Anion Gap 8 Blood Urea Nitrogen 13 mg/dl Creatinine 0.93 mg/dl Est Glomerular Filtrat Rate mL/min > 60 mL/min Glucose Level 100 mg/dl POC Venous Lactate 1.5 mmol/L Calcium Level 9.0 mg/dl Total Bilirubin 1.3 mg/dl Direct Bilirubin 0.00 mg/dl Indirect Bilirubin 1.3 mg/dl Aspartate Amino Transf (AST/SGOT) 62 IU/L Alanine Aminotransferase (ALT/SGPT) 52 IU/L Alkaline Phosphatase 156 IU/L Troponin I < 0.012 ng/ml Total Protein 6.4 g/dl Albumin 3.0 g/dl Globulin 3.40 g/dl Albumin/Globulin Ratio 0.88 Salicylates Level < 1.0 mg/dl Acetaminophen Level < 10.0 ug/ml Ethyl Alcohol Level < 10.0 mg/dl Lactic Acid Level 1.1 mmol/L Current Medications Medications Dose Sig/Jerrica Start Time Status Last (Trade) Ordered Route PRN Stop Time Admin Dose Reason Admin Sodium 500 ml @ Q1H STAT 04/18/19 DC 04/18/19 Chloride 500 mls/hr IV 23:46 04/19/19 23:49 00:45 Lactulose 20 gm QID PRN 04/19/19 (Enulose) PO 01:00 CONSTIPATION Sodium 2 gm TID PO 04/19/19 Chloride 09:00 (Nacl) IV Flush 3 ml PER 04/19/19 (NS 3 ml) PROTOCOL IV 01:00 Ondansetron 4 mg Q6H PRN 04/19/19 HCl (Zofran PO 01:00 Tab) NAUSEA/VOMITI NG 650 mg Q6H PRN 04/19/19 Acetaminophen PO .PAIN 1-3 01:00 (Tylenol OR TEMP Tab) Docusate 100 mg Q12H PRN 04/19/19 Sodium PO 01:00 (Colace) .CONSTIPATION Famotidine 20 mg Q12 PO 04/19/19 (Pepcid) 01:00 Enoxaparin 40 mg DAILY SC 04/19/19 Sodium 09:00 (Lovenox) Procedures/MDM EKG: Rate/Rhythm: [Normal Sinus Rhythm] QRS, ST, T-waves: [No changes consistent w/ acute ischemia] Impression: [No evidence of ischemia or arrhythmia] Chest X-ray 1V Interpreted by me: Soft Tissue: No acute abnormalities Bones: No acute abnormalities Mediastinum/Cardiac Silhouette/Lungs: [No acute abnormalities] Medical decision makin-year-old female here with severe hyponatremia. Start on normal saline fluid bolus. Admitted to Dr. Ambriz who is on-call for the patient's IPA. Departure Diagnosis: Primary Impression: Altered level of consciousness Condition: Serious ANGEL WHITESIDELin Apr 19, 2019 02:01
[2019-04-19] MEDS: FAMOTIDINE 20 MG TAB PO SCH ×3 (04:00→21:30)
[2019-04-19] MEDS: ENOXAPARIN 40 MG/0.4 ML SYG SC SCH (08:08)
[2019-04-19] MEDS: SODIUM CHLORIDE 1 GM TAB PO SCH ×3 (08:08→21:30)
[2019-04-19] MEDS: NACL 3% 500 ML IV SCH (11:06)
--- NOTE | 2019-04-19 15:52 | CONS ---
Assessment/Plan Assessment/Plan Assessment/Plan (Daily) 1. Severe hyponatremia likely due to Hypervolemic hyponatremia from decompensated Liver cirrhosis 2. Rule out SIADH 3. 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 symptomatic ascites 5. Anemia of CKD Plan: Na 120 yesterday no labs today to review yet, agree with 3$ saline at 30 ml/hr, Other electrolytes stablle Hold off diuretics( lasix and aldactone) Conitnue Na chloride 2 gram PO TID, monitor Na US guided paracentesis in AM - no need to send fluid studies I will order work up to rule out SIADH including Urine Na, urine protein/Cr ration, urine eosinophils, Uric acid, Thanks for consultation, I will continue to follow up Consultation Date/Type/Reason Admit Date/Time Apr 19, 2019 at 09:40 Date of Consultation: Apr 19, 2019 Type of Consult NEPHROLOGY Reason for Consultation Severe Hyponatremia with ESLD Requesting Provider: RACHEL WIGGINS MD Date/Time of Note DATE: 04/19/19 TIME: 15:52 Hx of Present Illness 58-year-old female with PMHx of end-stage alcoholic liver disease and recurrent ascites presented to ER with c/o Intermittent confusion despite being on lactulose regularly. pt has been on lasix 40mg po daily and aldactone 50mg daily for diuresis for ESLD. Initial evaluation revealed a recurrent hyponatremia with serum sodium of 120. Total bilirubin was only 1.3. Serum lactate was normal. White blood cell count was 8.8 and hemoglobin was 9.7 with a platelet count of a 284,000. She was started on 3 % saline and Admitted to telemetry floor for further work up Constitutional: disoriented, poor po Eyes: no complaints ENT: no complaints Respiratory: pleuritic pain, shortness of breath Cardiovascular: no complaints Gastrointestinal: no complaints Genitourinary: no complaints Musculoskeletal: back pain, bone/joint pain, restricted range of motion Skin: no complaints Neurologic: confusion, dizziness Endocrine: no complaints Lymphatic: no complaints Psychological: no complaints Immunologic: no complaints Past Medical History Medical History: high cholesterol, hypertension, other (ESLD with recurretn ascites and Hyponatremia ) Home Meds Active Scripts Sodium Chloride (Sodium Chloride) 1,000 Mg Tablet.doris, 2 GM PO TID for 30 Days, TAB Prov:RACHEL WIGGINS MD 03/26/19 Pantoprazole* (Protonix*) 40 Mg Tablet.dr, 40 MG PO DAILY for 30 Days, TAB Prov:RACHEL WIGGINS MD 03/25/19 Reported Medications Spironolactone* (Aldactone*) 50 Mg Tablet, 50 MG PO DAILY, #30 TAB 02/01/19 Lactulose* (Lactulose*) 10 Gm/15 Ml Solution, 30 ML PO QID PRN for CONSTIPATION, ML 01/28/19 Furosemide* (Furosemide*) 40 Mg Tablet, 40 MG PO DAILY, TAB 01/19/19 Medications Current Medications Lactulose (Enulose) 20 gm QID PRN PO CONSTIPATION; Start 04/19/19 at 01:00 Sodium Chloride (Nacl) 2 gm TID PO Last administered on 04/19/19at 13:02; Admin Dose 2 GM; Start 04/19/19 at 09:00 IV Flush (NS 3 ml) 3 ml PER PROTOCOL IV ; Start 04/19/19 at 01:00 Ondansetron HCl (Zofran Tab) 4 mg Q6H PRN PO NAUSEA/VOMITING; Start 04/19/19 at 01:00 Acetaminophen (Tylenol Tab) 650 mg Q6H PRN PO .PAIN 1-3 OR TEMP; Start 04/19/19 at 01:00 Docusate Sodium (Colace) 100 mg Q12H PRN PO .CONSTIPATION; Start 04/19/19 at 01:00 Famotidine (Pepcid) 20 mg Q12 PO Last administered on 04/19/19at 08:07; Admin Dose 20 MG; Start 04/19/19 at 01:00 Enoxaparin Sodium (Lovenox) 40 mg DAILY SC Last administered on 04/19/19at 08:08; Admin Dose 40 MG; Start 04/19/19 at 09:00 Sodium Chloride 500 ml @ 30 mls/hr [id number] IV Last administered on 04/19/19at 1 1:06; Admin Dose 30 MLS/HR; Start 04/19/19 at 10:30 Pantoprazole (Protonix Tab) 40 mg DAILY@0600 PO ; Start 04/19/19 at 16:00 Allergies: Coded Allergies: Penicillins (Unverified Allergy, Severe, RASH, 03/23/19) PER PT latex (Unverified Allergy, Severe, RASH, 03/23/19) PER PT Past Surgical History Past Surgical Hx: noncontributory, other (h/o paracentesis ) Family History Significant Family History: no pertinent family hx Social History Alcohol Use: none Smoking Status: Former smoker Drug Use: none Exam/Review of Systems Exam Vitals Vital Signs Date Temp Pulse Resp B/P (MAP) Pulse Ox O2 O2 Flow FiO2 Time Delivery Rate 04/19/19 100 12:00 04/19/19 97.8 18 103/59 99 11:50 (74) 04/19/19 Room Air 04:02 Intake and Output 04/18/19 04/18/19 04/19/19 1515:00 23:00 07:00 IntakeIntake Total 480 ml BalanceBalance 480 ml Constitutional: distress Psych: confusion Head: normocephalic ENMT: nl external ears & nose, other (no jaundice ) Neck: supple, non-tender Respiratory: normal air movement, congested cough, diminished breath sounds Cardiovascular: regular rate and rhythm, nl pulses Gastrointestinal: soft, non-tender, ascites, distended Musculoskeletal: muscle weakness, swelling Extremities: normal pulses Neurological: focal weakness, lethargic Skin: nl turgor Results Result Diagram: 04/18/19225304/18/19 2254 Results 24hrs Laboratory Tests Test 04/18/19 22:52 04/18/19 22:54 04/19/19 00:56 04/19/19 01:46 Bedside Glucose 109 White Blood Count 8.8 Red Blood Count 3.15 #L Hemoglobin 9.7 L Hematocrit 27.3 #L Mean Corpuscular 86.7 Volume Mean Corpuscular 30.8 Hemoglobin Mean Corpuscular 35.5 Hemoglobin Concent Red Cell 14.5 Distribution Width Platelet Count 284 # Mean Platelet 9.0 Volume Immature 0.700 H Granulocytes % Neutrophils % 62.9 Lymphocytes % 22.8 Monocytes % 12.5 H Eosinophils % 0.8 Basophils % 0.3 Nucleated Red 0.0 Blood Cells % Immature 0.060 H Granulocytes # Neutrophils # 5.5 Lymphocytes # 2.0 Monocytes # 1.1 H Eosinophils # 0.1 Basophils # 0.0 Nucleated Red 0.0 Blood Cells # Sodium Level 120 L Potassium Level 4.2 Chloride Level 88 L Carbon Dioxide 24 Level Anion Gap 8 Blood Urea 13 Nitrogen Creatinine 0.93 Est Glomerular > 60 Filtrat Rate mL/min Glucose Level 100 POC Venous Lactate 1.5 Calcium Level 9.0 Total Bilirubin 1.3 Direct Bilirubin 0.00 Indirect Bilirubin 1.3 H Aspartate Amino 62 H Transf (AST/SGOT) Alanine 52 Aminotransferase ( ALT/SGPT) Alkaline 156 H Phosphatase Troponin I < 0.012 Total Protein 6.4 Albumin 3.0 L Globulin 3.40 H Albumin/Globulin 0.88 Ratio Salicylates Level < 1.0 L Acetaminophen < 10.0 L Level Ethyl Alcohol < 10.0 H Level Lactic Acid Level 1.1 Urine Color YELLOW Urine Clarity SLIGHTLY CLOUDY A Urine pH 6.0 Urine Specific 1.014 [place] Urine Ketones NEGATIVE Urine Nitrite NEGATIVE Urine Bilirubin NEGATIVE Urine Urobilinogen NEGATIVE Urine Leukocyte TRACE A Esterase Urine Microscopic 24 H RBC Urine Microscopic 10 H WBC Urine Squamous MODERATE Epithelial Cells Urine Calcium FEW A Oxalate Crystals Urine Hemoglobin NEGATIVE Urine Glucose NEGATIVE Urine Total NEGATIVE Protein Urine Opiates Negative Screen Urine Barbiturates Negative Urine Amphetamines Negative Screen Urine Negative Benzodiazepines Screen Urine Cocaine Negative Screen Urine Cannabinoids Negative Test 04/19/19 02:59 Lactic Acid Level 0.9 Medications Medication Current Medications Lactulose (Enulose) 20 gm QID PRN PO CONSTIPATION; Start 04/19/19 at 01:00 Sodium Chloride (Nacl) 2 gm TID PO Last administered on 04/19/19at 13:02; Admin Dose 2 GM; Start 04/19/19 at 09:00 IV Flush (NS 3 ml) 3 ml PER PROTOCOL IV ; Start 04/19/19 at 01:00 Ondansetron HCl (Zofran Tab) 4 mg Q6H PRN PO NAUSEA/VOMITING; Start 04/19/19 at 01:00 Acetaminophen (Tylenol Tab) 650 mg Q6H PRN PO .PAIN 1-3 OR TEMP; Start 04/19/19 at 01:00 Docusate Sodium (Colace) 100 mg Q12H PRN PO .CONSTIPATION; Start 04/19/19 at 01:00 Famotidine (Pepcid) 20 mg Q12 PO Last administered on 04/19/19at 08:07; Admin Dose 20 MG; Start 04/19/19 at 01:00 Enoxaparin Sodium (Lovenox) 40 mg DAILY SC Last administered on 04/19/19at 08:08; Admin Dose 40 MG; Start 04/19/19 at 09:00 Sodium Chloride 500 ml @ 30 mls/hr [id number] IV Last administered on 04/19/19at 11:06; Admin Dose 30 MLS/HR; Start 04/19/19 at 10:30 Pantoprazole (Protonix Tab) 40 mg DAILY@0600 PO ; Start 04/19/19 at 16:00 MUNIR ESCALANTE MD Apr 19, 2019 15:52
[2019-04-19] MEDS: PANTOPRAZOLE (EC) 40 MG TAB PO SCH (16:40)
--- NOTE | 2019-04-19 17:29 | HP ---
DATE OF ADMISSION: 04/19/2019 CHIEF COMPLAINT: Altered mental status. HISTORY OF PRESENT ILLNESS: A 58-year-old female well known to me with end-stage alcoholic liver dis ease and recurrent ascites. Presented to the emergency room with complaint of feeling very foggy in the last few days prior to admission. The patient was previously taking her lactulose on a regular b asis; however, she cut down on the medication due to nausea. She denies any abdominal pain. No alexa temesis. No bright red blood per rectum or melena. Initial evaluation revealed a recurrent hyponatremia with serum sodium of 120. Total bilirubin was o nly 1.3. Serum lactate was normal. White blood cell count was 8.8 and hemoglobin was 9.7 with a radha telet count of a 284,000. PAST MEDICAL HISTORY: 1. Endstage alcoholic liver disease. 2. Ascites. 3. History of hyponatremia. MEDICATIONS PRIOR TO ADMISSION: 1. Lasix 40 mg daily. 2. Protonix 40 mg daily. 3. Spironolactone 50 mg daily. SOCIAL HISTORY: The patient has a long history of heavy alcohol abuse and has sober for several karuna hs. PHYSICAL EXAMINATION: GENERAL: A well-developed and well-nourished female, who is alert and oriented to time and place. VITAL SIGNS: Stable. She is afebrile. HEENT: Extraocular muscles intact. Pupils are equal and reactive to light bilaterally. Sclerae are anicteric. Oropharynx is clear and moist. NECK: Supple, no JVD, no carotid bruits. LUNGS: Clear to auscultation bilaterally. CARDIAC: Regular rate and rhythm. No murmurs, rubs or gallops. ABDOMEN: Soft, moderately distended, normoactive bowel sounds, nontender. EXTREMITIES: No clubbing, cyanosis, or edema. NEUROLOGICAL: Grossly nonfocal. ASSESSMENT: 1. A 58-year-old female with recurrent hyponatremia. 2. End-stage alcoholic liver disease. 3. History of recurrent ascites. 4. History of metabolic encephalopathy due to hyperammonemia. PLAN: 1. Place in tele observation, at 3% saline at 30 mL per hour. Hold diuretics. Continue lactulose. 2. Check ammonia level. 3. Nephrology consultation will be requested. Dictated By: RACHEL BASS/CHESTER Conf#: [id number] DID#: [id number] CC: NAVEED ZAVALA MD;*EndCC*
[2019-04-20] VITALS (11 sets, daily range): BP systolic 92–125; BP diastolic 50–65; PULSE 71–106; RESP 17–18
[2019-04-20] MEDS: NACL 3% 500 ML IV SCH ×2 (03:05→06:06)
[2019-04-20] MEDS: PANTOPRAZOLE (EC) 40 MG TAB PO SCH (06:04)
[2019-04-20] MEDS: FAMOTIDINE 20 MG TAB PO SCH (08:12)
[2019-04-20] MEDS: ONDANSETRON 4 MG TAB PO PRN ×2 (08:12→12:05)
[2019-04-20] MEDS: ENOXAPARIN 40 MG/0.4 ML SYG SC SCH (08:13)
[2019-04-20] MEDS: SODIUM CHLORIDE 1 GM TAB PO SCH ×2 (08:13→12:06)
--- NOTE | 2019-04-20 09:12 | CONS ---
Assessment/Plan Assessment/Plan Assessment/Plan (Daily) 1. Severe hyponatremia likely due to Hypervolemic hyponatremia from decompensated Liver cirrhosis 2. Rule out SIADH 3. 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 symptomatic ascites 5. Anemia of CKD Plan: s/p US guided paracentesis done 5 L removed, Bp stable, Na improving, s/p 3% saline, now Stable Hold off diuretics( lasix and aldactone) Conitnue Na chloride 2 gram PO TID, demeclocycline 300mg BID and posible d/c with it d/c planning in progress, will follow up Consultation Date/Type/Reason Admit Date/Time Apr 19, 2019 at 09:40 Initial Consult Date 04/19/19 Type of Consult NEPHROLOGY Requesting Provider: RACHEL WIGGINS MD Date/Time of Note DATE: 04/20/19 TIME: 09:12 Exam/Review of Systems Exam Vitals Vital Signs Date Temp Pulse Resp B/P (MAP) Pulse Ox O2 O2 Flow FiO2 Time Delivery Rate 04/20/19 71 08:16 04/20/19 97.7 18 92/50 (64) 100 07:15 04/19/19 Room Air 04:02 Intake and Output 04/19/19 04/19/19 04/20/19 1515:00 23:00 07:00 IntakeIntake Total 300 ml 250 ml BalanceBalance 300 ml 250 ml Results Result Diagram: 04/20/19 0604 04/20/19 0604 Results 24hrs Laboratory Tests Test 04/19/19 16:23 04/19/19 17:00 04/20/19 06:04 Osmolality 258 L Uric Acid 5.2 Ammonia 10 Urine Osmolality 533 Urine Random Creatinine 152.79 Urine Random Sodium 17 L Urine Protein/Creatinine Ratio 0.03 Urine Total Protein < 5.0 White Blood Count 7.7 Red Blood Count 3.15 L Hemoglobin 9.6 L Hematocrit 28.4 L Mean Corpuscular Volume 90.2 Mean Corpuscular Hemoglobin 30.5 Mean Corpuscular Hemoglobin Concent 33.8 Red Cell Distribution Width 14.8 H Platelet Count 284 Mean Platelet Volume 8.7 Immature Granulocytes % 0.400 Neutrophils % 69.6 Lymphocytes % 20.6 Monocytes % 8.2 Eosinophils % 0.6 Basophils % 0.6 Nucleated Red Blood Cells % 0.0 Immature Granulocytes # 0.030 Neutrophils # 5.4 Lymphocytes # 1.6 Monocytes # 0.6 Eosinophils # 0.1 Basophils # 0.1 Nucleated Red Blood Cells # 0.0 Prothrombin Time 13.9 Prothrombin Time Ratio 1.1 INR International Normalized Ratio 1.06 Activated Partial Thromboplast Time 43.3 H Sodium Level 127 L Potassium Level 3.3 L Chloride Level 96 L Carbon Dioxide Level 22 Anion Gap 9 Blood Urea Nitrogen 10 Creatinine 0.80 Est Glomerular Filtrat Rate mL/min > 60 Glucose Level 108 Calcium Level 8.5 Total Bilirubin 1.5 H Direct Bilirubin 0.00 Indirect Bilirubin 1.5 H Aspartate Amino Transf (AST/SGOT) 58 H Alanine Aminotransferase (ALT/SGPT) 43 Alkaline Phosphatase 112 Total Protein 5.9 L Albumin 2.8 L Globulin 3.10 Albumin/Globulin Ratio 0.90 Thyroid Stimulating Hormone (TSH) 2.190 Medications Medication Current Medications Lactulose (Enulose) 20 gm QID PRN PO CONSTIPATION; Start 04/19/19 at 01:00 Sodium Chloride (Nacl) 2 gm TID PO Last administered on 04/20/19 08:13; Admin Dose 2 GM; Start 04/19/19 at 09:00 IV Flush (NS 3 ml) 3 ml PER PROTOCOL IV ; Start 04/19/19 at 01:00 Ondansetron HCl (Zofran Tab) 4 mg Q6H PRN PO NAUSEA/VOMITING Last administered on 04/20/19 08:12; Admin Dose 4 MG; Start 04/19/19 at 01:00 Acetaminophen (Tylenol Tab) 650 mg Q6H PRN PO .PAIN 1-3 OR TEMP; Start 04/19/19 at 01:00 Docusate Sodium (Colace) 100 mg Q12H PRN PO .CONSTIPATION; Start 04/19/19 at 01:00 Famotidine (Pepcid) 20 mg Q12 PO Last administered on 04/20/19 08:12; Admin Dose 20 MG; Start 04/19/19 at 01:00 Enoxaparin Sodium (Lovenox) 40 mg DAILY SC Last administered on 04/20/19 08:13; Admin Dose 40 MG; Start 04/19/19 at 09:00 Sodium Chloride 500 ml @ 30 mls/hr [id number] IV Last administered on 04/20/19 06:06; Admin Dose 30 MLS/HR; Start 04/19/19 at 10:30 Pantoprazole (Protonix Tab) 40 mg DAILY@0600 PO Last administered on 04/20/19at 06:04; Admin Dose 40 MG; Start 04/19/19 at 16:00 MUNIR ESCALANTE MD Apr 20, 2019 09:12
[2019-04-20] MEDS ORDERED: POTASSIUM CHLORIDE 100 ML IVPB ONE (09:30)
[2019-04-20] MEDS ORDERED: DEME150T8 PO (10:16)
[2019-04-20] MEDS ORDERED: FURO-110 PO (10:16)
[2019-04-20] MEDS ORDERED: ONDA4TAB95 PO (10:16)
--- NOTE | 2019-04-20 10:17 | PDOCDIS ---
Discharge Instructions CONDITION [id number] Patient Condition: [id number] Good HOME CARE INSTRUCTIONS: [id number] Diet Instructions: [id number] Regular ACTIVITY: [id number] Activity Restrictions: [id number] No Restrictions FOLLOW UP/APPOINTMENTS Follow-up Plan pcp [address] Moss 1 week RACHEL WIGGINS MD Apr 20, 2019 10:17
[2019-04-20] MEDS ORDERED: DEMECLOCYCLINE 150 MG TAB PO SCH (10:30)
[2019-04-20] MEDS ORDERED: LIDOCAINE 1% (MPF) 5 ML VIAL ONE (12:41)
--- NOTE | 2019-04-21 00:54 | DS ---
DATE OF ADMISSION: 04/19/2019 DATE OF DISCHARGE: 04/20/2019 DISCHARGE DIAGNOSES: 1. A 58-year-old female with recurrent hyponatremia. 2. Altered mental status, resolved. 3. End-stage alcoholic liver disease. 4. History of recurrent ascites. HOSPITAL COURSE: A 58-year-old female with end-stage alcoholic liver disease, sober times several mo nths, returned to the emergency room with complaints of altered mentation and feeling foggy. The pat ient was compliant with her lactulose therapy. Initial evaluation revealed a serum sodium of 120. A mmonia level was low at 10. The patient was started on hypertonic saline. She was seen in consultat ion by Dr. Munir Escalante. She was started on demeclocycline. Repeat serum sodium was 127. The corinne ent was asymptomatic on the day of discharge. She is in a stable condition for discharge. The patie nt will undergo paracentesis prior to discharge. I decreased the Lasix to 20 mg daily. PLAN: Discharge home following paracentesis. MEDICATIONS ON DISCHARGE: 1. Demeclocycline 300 mg p.o. b.i.d. 2. Spironolactone 50 mg p.o. daily. 3. Lasix 20 mg p.o. daily. 4. Zofran 4 mg q.6h. p.r.n. 5. Protonix 40 mg daily. 6. Sodium chloride tablets 2 grams t.i.d. DISCHARGE INSTRUCTIONS: 1. Follow up with PCP in 1 week. 2. Follow up with Dr. Munir Escalante in 1 week. Dictated By: RACHEL BASS/CHESTER Conf#: [id number] DID#: [id number] CC: NAVEED ZAVALA MD; MUNIR ESCALANTE MD;*EndCC*
== END 2019-04-20 17:40 | disposition home or self-care (01) | DRG 433 ==
LOC: E/R 22:03 → 6WM 04-19 00:39 → EDBEDREQSVC 04-19 00:45 → OBSVTOIN 04-19 09:40
PROVIDERS: ADMIT Internal Medicine; ATTEND Internal Medicine
PROC: 0W9G3ZZ Drainage of Peritoneal Cavity, Percutaneous Approach (ICD-10-PCS; principal; 2019-04-20)
DX: K70.31 Alcoholic cirrhosis of liver with ascites (principal); E87.1 Hypo-osmolality and hyponatremia; N18.9 Chronic kidney disease, unspecified; D63.1 Anemia in chronic kidney disease
CPT/HCPCS: 36415; 70450; 71045; 80053; 80307; 81001; 81003; 82140; 82570; 82962; 83605; 83930; 83935; 84300; 84443; 84484; 84560; 85025; 85610; 85730; 87081; 93005; G0378; J1650; J3480; J7040

== ENCOUNTER 2019-04-25 21:57 | Observation (INO) | payer OTHER ==
[~2019-04-25] VITALS: Ht 165.1 cm; Wt 48.8 kg
[~2019-04-25 21:57] MED LIST changes: +DEME150T8 PO; +FURO-110 PO; -FURO40TA4 PO; +ONDA4TAB95 PO
[2019-04-26] MEDS ORDERED: ACETAMINOPHEN 325 MG TAB PO PRN
[2019-04-26] MEDS ORDERED: ONDANSETRON 4 MG INJ IV PRN
--- NOTE | 2019-04-26 01:30 | ERD ---
ER Documentation Chief Complaint Chief Complaint BIB SON D/T ALOC, LIVER FAILURE PT, HX OF HYPONATREMIA HPI This is a 58-year-old female brought in by son due to altered level consciousness. Patient has recurrent hyponatremia this is likely cause. Sounds that she became altered yesterday has got progressively more altered today. No trauma. No fevers no chills. No focal neurological complaints. ROS All systems reviewed and are negative except as per history of present illness. Medications Home Meds Active Scripts Furosemide* (Lasix*) 20 Mg Tablet, 20 MG PO DAILY for 30 Days, TAB Prov:RACHEL WIGGINS MD 04/20/19 Ondansetron Hcl* (Ondansetron Hcl*) 4 Mg Tablet, 4 MG PO Q6H PRN for NAUSEA/VOMITING for 30 Days, TAB Prov:RACHEL WIGGINS MD 04/20/19 Demeclocycline Hcl* (Declomycin*) 150 Mg Tablet, 300 MG PO BID for 30 Days, TAB Prov:RACHEL WIGGINS MD 04/20/19 Sodium Chloride (Sodium Chloride) 1,000 Mg Tablet.doris, 2 GM PO TID for 30 Days, TAB Prov:RACHEL WIGGINS MD 03/26/19 Pantoprazole* (Protonix*) 40 Mg Tablet.dr, 40 MG PO DAILY for 30 Days, TAB Prov:RACHEL WIGGINS MD 03/25/19 Reported Medications Spironolactone* (Aldactone*) 50 Mg Tablet, 50 MG PO DAILY, #30 TAB 02/01/19 Lactulose* (Lactulose*) 10 Gm/15 Ml Solution, 30 ML PO QID PRN for CONSTIPATION, ML 01/28/19 Discontinued Reported Medications Furosemide* (Furosemide*) 40 Mg Tablet, 40 MG PO DAILY, TAB 01/19/19 Allergies Allergies: Coded Allergies: Penicillins (Unverified Allergy, Severe, RASH, 03/23/19) PER PT latex (Unverified Allergy, Severe, RASH, 03/23/19) PER PT PMhx/Soc History of Surgery: Yes (Breast augmentation) Anesthesia Reaction: No Hx Neurological Disorder: No Hx Respiratory Disorders: No Hx Cardiac Disorders: No Hx Psychiatric Problems: No Hx Miscellaneous Medical Probl: Yes (Recurrent hyponatremia possibly due to End stage liver disease.) Hx Alcohol Use: Yes (Wine, vodka last used 2017) Hx Substance Use: No Hx Tobacco Use: Yes Smoking Status: Current some day smoker Physical Exam Vitals Vital Signs Date Temp Pulse Resp B/P (MAP) Pulse Ox O2 O2 Flow FiO2 Time Delivery Rate 04/25/19 Nasal 2 22:49 Cannula 04/25/19 97.0 92 16 111/69 100 Room Air 22:38 (83) 04/25/19 97.0 99 16 120/57 100 22:00 (78) Physical Exam Const: No acute distress Head: Atraumatic Eyes: Normal Conjunctiva ENT: Normal External Ears, Nose and Mouth. Neck: Full range of motion. No meningismus. Resp: Clear to auscultation bilaterally Cardio: Regular rate and rhythm, no murmurs Abd: Soft, non tender, non distended. Normal bowel sounds Skin: No petechiae or rashes Back: No midline or flank tenderness Ext: No cyanosis, or edema Neur: Awake and alert Psych: Normal Mood and Affect Result Diagram: 04/25/19223404/25/192234 Results 24 hrs Laboratory Tests Test 04/25/19 22:35 04/25/19 22:47 04/25/19 22:48 White Blood Count 10.0 10^3/ul Red Blood Count 3.60 10^6/ul Hemoglobin 11.1 g/dl Hematocrit 31.5 % Mean Corpuscular Volume 87.5 fl Mean Corpuscular Hemoglobin 30.8 pg Mean Corpuscular Hemoglobin Concent 35.2 g/dl Red Cell Distribution Width 14.4 % Platelet Count 274 10^3/UL Mean Platelet Volume 8.4 fl Immature Granulocytes % 0.600 % Neutrophils % 58.9 % Lymphocytes % 28.5 % Monocytes % 10.7 % Eosinophils % 0.9 % Basophils % 0.4 % Nucleated Red Blood Cells % 0.0 /100WBC Immature Granulocytes # 0.060 10^3/ul Neutrophils # 5.9 10^3/ul Lymphocytes # 2.8 10^3/ul Monocytes # 1.1 10^3/ul Eosinophils # 0.1 10^3/ul Basophils # 0.0 10^3/ul Nucleated Red Blood Cells # 0.0 10^3/ul Sodium Level 124 mmol/L Potassium Level 3.8 mmol/L Chloride Level 93 mmol/L Carbon Dioxide Level 23 mmol/L Anion Gap 8 Blood Urea Nitrogen 11 mg/dl Creatinine 0.91 mg/dl Est Glomerular Filtrat Rate mL/min > 60 mL/min Glucose Level 107 mg/dl Calcium Level 9.1 mg/dl Total Bilirubin 1.5 mg/dl Direct Bilirubin 0.00 mg/dl Indirect Bilirubin 1.5 mg/dl Aspartate Amino Transf (AST/SGOT) 68 IU/L Alanine Aminotransferase (ALT/SGPT) 56 IU/L Alkaline Phosphatase 123 IU/L Ammonia 13 umol/l Troponin I < 0.012 ng/ml Total Protein 6.3 g/dl Albumin 2.9 g/dl Globulin 3.40 g/dl Albumin/Globulin Ratio 0.85 Salicylates Level < 1.0 mg/dl Acetaminophen Level < 10.0 ug/ml Ethyl Alcohol Level < 10.0 mg/dl Bedside Glucose 99 mg/dL POC Venous Lactate 1.4 mmol/L Current Medications Medications Dose Sig/Jerrica Start Time Status Last (Trade) Ordered Route PRN Stop Time Admin Dose Reason Admin Ondansetron 4 mg BRIDGE ORDER 04/26/19 HCl (Zofran PRN IV 00:00 Inj) NAUSEA/VOMITI 04/26/19 23:59 NG 650 mg ER BRIDGE 04/26/19 Acetaminophen PRN PO 00:00 (Tylenol .MILD PAIN 04/26/19 23:59 Tab) 1-3 OR TEMP Procedures/MDM EKG: Rate/Rhythm: [Normal Sinus Rhythm] QRS, ST, T-waves: [No changes consistent w/ acute ischemia] Impression: [No evidence of ischemia or arrhythmia] Chest X-ray 1V Interpreted by me: Soft Tissue: No acute abnormalities Bones: No acute abnormalities Mediastinum/Cardiac Silhouette/Lungs: [No acute abnormalities] Medical decision make: 58-year-old female recurrent altered level consciousness. Likely secondary to hyponatremia. Patient admitted to Dr. Carvajal is on-call for patient's IPA. Departure Diagnosis: Primary Impression: Altered level of consciousness Additional Impression: Hyponatremia Condition: Serious ANGEL WHITESIDE Apr 26, 2019 01:30
[2019-04-26] MEDS ORDERED: SPIR50TA PO (06:03)
[2019-04-26] MEDS ORDERED: FURO40TA4 PO (06:03)
[2019-04-26] MEDS ORDERED: PANT40TA3 PO (06:04)
[2019-04-26] MEDS ORDERED: DEME150T8 PO (06:05)
[2019-04-26] MEDS ORDERED: LACTULOSE 30ML CUP PO PRN (07:30)
--- NOTE | 2019-04-26 10:04 | HP ---
DATE OF ADMISSION: 04/25/2019 CHIEF COMPLAINT: Altered mentation. HISTORY OF PRESENT ILLNESS: This is a 58-year-old female well known to me with end-stage alcoholic l iver disease, chronic ascites, and multiple episodes of hyponatremia, was brought in by her son with altered level of consciousness. The patient has no complaints. There was no focal neurological find ing. She was discharged several days prior to admission following recurrent hyponatremia. Repeat se rum sodium was 124. Serum ammonia was normal at 13. PAST MEDICAL HISTORY: 1. Endstage alcoholic liver disease. 2. Chronic ascites. 3. History of hepatic encephalopathy. MEDICATIONS PRIOR TO ADMISSION: 1. Demeclocycline 150 mg q.i.d. 2. Spironolactone 50 mg b.i.d. 3. Lasix 40 mg daily. 4. Lactulose 30 mL q.i.d. 5. Protonix 40 mg daily. SOCIAL HISTORY: The patient has a history of heavy alcohol abuse. She lives with her son. PHYSICAL EXAMINATION: GENERAL: Well-developed, well-nourished female, who is alert and oriented to time and place. VITAL SIGNS: Stable. She is afebrile. HEENT: Extraocular muscles are intact. Pupils are equal and reactive to light bilaterally. Sclerae are anicteric. Oropharynx is clear and moist. NECK: Supple, no JVD, no carotid bruits. LUNGS: Clear to auscultation bilaterally. CARDIAC: Regular rate and rhythm. No murmurs or gallops. ABDOMEN: Soft, distended, nontender, normoactive bowel sounds. EXTREMITIES: No clubbing, cyanosis, or edema. NEUROLOGICAL: Nonfocal. LABORATORY DATA: WBC 10, hemoglobin is 11.1, platelet count is 274,000. ASSESSMENT: A 58-year-old female with; 1. Recurrent hyponatremia. 2. Altered mental status secondary to #1. 3. End-stage alcoholic liver disease. 4. Chronic ascites, undergoing frequent paracentesis. PLAN: 1. Place in tele observation, start hypertonic saline at 30 mL an hour. Resume home medications exc ept Lasix. 2. Nephrology consultation was requested and case was discussed with Dr. Escalante. 3. 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 Her son does not want her to go back to her previou s living situation. Dictated By: RACHEL BASS/CHESTER Conf#: [id number] DID#: [id number] CC: BRISEYDA GIL MD; MUNIR ESCALANTE MD;*EndCC*
[2019-04-26] MEDS: SPIRONOLACTONE 50 MG TAB PO SCH ×2 (10:11→21:55)
[2019-04-26] MEDS: NACL 3% 500 ML IV SCH (10:11)
[2019-04-26] MEDS: DEMECLOCYCLINE 150 MG TAB PO SCH ×4 (10:11→21:55)
--- NOTE | 2019-04-26 10:11 | QN ---
Documentation Comment Observation Note: Time: 4 hours Family Hx: Negative for diabetes Evaluation: Multiple exams showed improving symptoms and no evidence of clinical decompensation. BRISEYDA GIL MD Apr 26, 2019 10:11
[2019-04-26] MEDS: PANTOPRAZOLE (EC) 40 MG TAB PO SCH (10:12)
--- NOTE | 2019-04-26 11:19 | CONS ---
Assessment/Plan Assessment/Plan Assessment/Plan (Daily) 1. Severe hyponatremia likely due to Hypervolemic hyponatremia from decompensated Liver cirrhosis 2. SIADH 3. 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 symptomatic ascites 5. Anemia of CKD Plan: Na 122- cxontinue Na chloride tablet, 3 % salien at 30 ml/hr x 12 hr then reassess Na conitnue Demeclocycline 150mg PO QID for SIADH Thanks for consultation, I will continue to follo fouzia < expecting Na to improve Consultation Date/Type/Reason Admit Date/Time 04/25/19 Date of Consultation: Apr 26, 2019 Type of Consult NEPHROLOGY Reason for Consultation Hyponatremia, possible SIADH, ESLD Requesting Provider: RACHEL WIGGINS MD Date/Time of Note DATE: 04/26/19 TIME: 11:19 Hx of Present Illness 58-year-old female well known to me with end-stage alcoholic liver disease, chronic ascites, and multiple episodes of hyponatremia, was brought in by her son with altered level of consciousness. The patient has no complaints. There was no focal neurological finding. She was discharged several days prior to a dmission following recurrent hyponatremia. Repeat serum sodium was 124. Serum ammonia was normal at 13 Renal has been consulted for hyponatremia,Na 122 Constitutional: poor po ENT: no complaints Respiratory: pleuritic pain, shortness of breath Cardiovascular: no complaints Gastrointestinal: no complaints Genitourinary: no complaints Musculoskeletal: no complaints Skin: no complaints Neurologic: no complaints Endocrine: no complaints Lymphatic: no complaints Past Medical History Home Meds Active Scripts Megestrol Acetate* (Megace*) 40 Mg Tab, 40 MG PO BID for 30 Days, TAB Prov:RACHEL WIGGINS MD 04/27/19 Reported Medications Demeclocycline Hcl* (Declomycin*) 150 Mg Tablet, 150 MG PO QID, #120 TAB 04/26/19 Pantoprazole* (Protonix*) 40 Mg Tablet.dr, 40 MG PO DAILY, TAB 04/26/19 Spironolactone* (Aldactone*) 50 Mg Tablet, 50 MG PO BID, #60 TAB 04/26/19 Lactulose* (Lactulose*) 10 Gm/15 Ml Solution, 30 ML PO QID PRN for CONSTIPATION, ML 01/28/19 Discontinued Reported Medications Furosemide* (Furosemide*) 40 Mg Tablet, 40 MG PO DAILY, TAB 04/26/19 Spironolactone* (Aldactone*) 50 Mg Tablet, 50 MG PO DAILY, #30 TAB 02/01/19 Discontinued Scripts Furosemide* (Lasix*) 20 Mg Tablet, 20 MG PO DAILY for 30 Days, TAB Prov:RACHEL WIGGINS MD 04/20/19 Ondansetron Hcl* (Ondansetron Hcl*) 4 Mg Tablet, 4 MG PO Q6H PRN for NAUSEA/VOMITING for 30 Days, TAB Prov:RACHEL WIGGINS MD 04/20/19 Demeclocycline Hcl* (Declomycin*) 150 Mg Tablet, 300 MG PO BID for 30 Days, TAB Prov:RACHEL WIGGINS MD 04/20/19 Sodium Chloride (Sodium Chloride) 1,000 Mg Tablet.doris, 2 GM PO TID for 30 Days, TAB Prov:RACHEL WIGGINS MD 03/26/19 Pantoprazole* (Protonix*) 40 Mg Tablet.dr, 40 MG PO DAILY for 30 Days, TAB Prov:RACHEL WIGGINS MD 03/25/19 Medications Current Medications Ondansetron HCl (Zofran Inj) 4 mg BRIDGE ORDER PRN IV NAUSEA/VOMITING; Start 04/26/19 at 00:00; Stop 04/26/19 at 23:59 Acetaminophen (Tylenol Tab) 650 mg ER BRIDGE PRN PO .MILD PAIN 1-3 OR TEMP; Start 04/26/19 at 00:00; Stop 04/26/19 at 23:59 Sodium Chloride 500 ml @ 30 mls/hr [id number] IV Last administered on 04/26/19at 10:11; Admin Dose 30 MLS/HR; Start 04/26/19 at 07:30 Demeclocycline HCl (Declomycin) 150 mg QID PO Last administered on 04/26/19at 10:11; Admin Dose 150 MG; Start 04/26/19 at 09:00 Lactulose (Enulose) 20 gm QID PRN PO CONSTIPATION; Start 04/26/19 at 07:30 Pantoprazole (Protonix Tab) 40 mg DAILY PO Last administered on 04/26/19at 10:12; Admin Dose 40 MG; Start 04/26/19 at 09:00 Spironolactone (Aldactone) 50 mg BID PO Last administered on 04/26/19at 10:11; Admin Dose 50 MG; Start 04/26/19 at 09:00 Allergies: Coded Allergies: Penicillins (Unverified Allergy, Severe, RASH, 04/26/19) PER PT latex (Unverified Allergy, Severe, RASH, 04/26/19) PER PT Past Surgical History Past Surgical Hx: noncontributory, other Social History Smoking Status: Current some day smoker Exam/Review of Systems Exam Vitals Vital Signs Date Temp Pulse Resp B/P (MAP) Pulse Ox O2 O2 Flow FiO2 Time Delivery Rate 04/26/19 98.2 100 18 120/91 100 Room Air 10:00 (101) 100 04/25/19 2 22:49 Results Result Diagram: 04/25/19 2235 04/25/19 2235 Results 24hrs Laboratory Tests Test 04/25/19 22:35 04/25/19 22:47 04/25/19 22:48 04/26/19 01:19 White Blood Count 10.0 # Red Blood Count 3.60 L Hemoglobin 11.1 L Hematocrit 31.5 L Mean Corpuscular 87.5 Volume Mean Corpuscular 30.8 Hemoglobin Mean Corpuscular 35.2 Hemoglobin Concent Red Cell Distribution 14.4 Width Platelet Count 274 Mean Platelet Volume 8.4 Immature Granulocytes 0.600 H % Neutrophils % 58.9 Lymphocytes % 28.5 Monocytes % 10.7 Eosinophils % 0.9 Basophils % 0.4 Nucleated Red Blood 0.0 Cells % Immature Granulocytes 0.060 H # Neutrophils # 5.9 Lymphocytes # 2.8 Monocytes # 1.1 H Eosinophils # 0.1 Basophils # 0.0 Nucleated Red Blood 0.0 Cells # Sodium Level 124 L Potassium Level 3.8 Chloride Level 93 L Carbon Dioxide Level 23 Anion Gap 8 Blood Urea Nitrogen 11 Creatinine 0.91 Est Glomerular Filtrat > 60 Rate mL/min Glucose Level 107 Calcium Level 9.1 Total Bilirubin 1.5 H Direct Bilirubin 0.00 Indirect Bilirubin 1.5 H Aspartate Amino 68 H Transf (AST/SGOT) Alanine 56 Aminotransferase (ALT/ SGPT) Alkaline Phosphatase 123 H Ammonia 13 Troponin I < 0.012 Total Protein 6.3 Albumin 2.9 L Globulin 3.40 H Albumin/Globulin Ratio 0.85 Salicylates Level < 1.0 L Acetaminophen Level < 10.0 L Ethyl Alcohol Level < 10.0 H Bedside Glucose 99 POC Venous Lactate 1.4 Lactic Acid Level 1.3 Test 04/26/19 04:38 Lactic Acid Level 1.1 Medications Medication Current Medications Ondansetron HCl (Zofran Inj) 4 mg BRIDGE ORDER PRN IV NAUSEA/VOMITING; Start 04/26/19 at 00:00; Stop 04/26/19 at 23:59 Acetaminophen (Tylenol Tab) 650 mg ER BRIDGE PRN PO .MILD PAIN 1-3 OR TEMP; Sta rt 04/26/19 at 00:00; Stop 04/26/19 at 23:59 Sodium Chloride 500 ml @ 30 mls/hr [id number] IV Last administered on 04/26/19at 10:11; Admin Dose 30 MLS/HR; Start 04/26/19 at 07:30 Demeclocycline HCl (Declomycin) 150 mg QID PO Last administered on 04/26/19at 10:11; Admin Dose 150 MG; Start 04/26/19 at 09:00 Lactulose (Enulose) 20 gm QID PRN PO CONSTIPATION; Start 04/26/19 at 07:30 Pantoprazole (Protonix Tab) 40 mg DAILY PO Last administered on 04/26/19at 10:12; Admin Dose 40 MG; Start 04/26/19 at 09:00 Spironolactone (Aldactone) 50 mg BID PO Last administered on 04/26/19at 10:11; Admin Dose 50 MG; Start 04/26/19 at 09:00 MUNIR ESCALANTE MD Apr 26, 2019 11:19
[2019-04-26 13:48] VITALS: Ht 165.1 cm; Wt 48.8 kg
[2019-04-26 13:54] VITALS: BP 100/57; PULSE 103; RESP 18
[2019-04-26] MEDS ORDERED: PENDING SANTYL ORDER FOR WOUND CARE XX PRN (15:30)
[2019-04-26 15:37] VITALS: BP 92/53; PULSE 98; RESP 20
[2019-04-26 16:38] VITALS: PULSE 104
[2019-04-26 20:07] VITALS: PULSE 113
[2019-04-26 20:27] VITALS: BP 102/56; PULSE 11; RESP 18
[2019-04-27] VITALS (8 sets, daily range): BP systolic 102–117; BP diastolic 56–67; PULSE 91–111; RESP 16–18
[2019-04-27] MEDS: NACL 3% 500 ML IV SCH ×2 (00:41→17:21)
[2019-04-27] MEDS ORDERED: traMADol 50 MG TAB PO PRN (01:00)
[2019-04-27] MEDS ORDERED: ACETAMINOPHEN 325 MG TAB PO PRN (01:00)
[2019-04-27] MEDS: SPIRONOLACTONE 50 MG TAB PO SCH (08:08)
[2019-04-27] MEDS: DEMECLOCYCLINE 150 MG TAB PO SCH ×3 (08:08→17:25)
[2019-04-27] MEDS: PANTOPRAZOLE (EC) 40 MG TAB PO SCH (08:09)
--- NOTE | 2019-04-27 10:23 | PDOCDIS ---
Discharge Instructions CONDITION [id number] Patient Condition: [id number] Good HOME CARE INSTRUCTIONS: [id number] Diet Instructions: [id number] Regular ACTIVITY: [id number] Activity Restrictions: [id number] Rest between Activity FOLLOW UP/APPOINTMENTS Follow-up Plan pcp 1 week [facility] 2 days RACHEL WIGGINS MD Apr 27, 2019 10:23
[2019-04-27] MEDS ORDERED: MEGE40TA PO (10:37)
[2019-04-27] MEDS ORDERED: LIDOCAINE 1% (MPF) 5 ML VIAL ONE (14:03)
--- NOTE | 2019-04-27 17:44 | DS ---
DATE OF ADMISSION: 04/25/2019 DATE OF DISCHARGE: 04/27/2019 DISCHARGE DIAGNOSES: 1. A 58-year-old female with recurrent hyponatremia, improved. 2. End-stage alcoholic liver disease. 3. Recurrent ascites. 4. Hepatic encephalopathy, compensated. HOSPITAL COURSE: A 58-year-old female with end-stage alcoholic liver disease, presented to emergency room with recurrent altered level of consciousness. The patient was diagnosed with recurrent hypona tremia. Initial serum sodium was 124 and went down to 122. She received hypertonic saline. Repeat serum sodium on the following day was 130. The patient will undergo paracentesis prior to discharge. I discontinued Lasix since this particular medication could be contributing to her recurrent hypona tremia. Renal consultation was also requested. Demeclocycline was continued. The patient has an ap pointment at [facility] for further evaluation of liver transplant. She is in stable condition for discharg e following paracentesis. MEDICATIONS ON DISCHARGE: 1. Demeclocycline 150 mg q.i.d. 2. Spironolactone 50 mg b.i.d. 3. Lactulose 30 mL q.i.d. 4. Protonix 40 mg daily. FOLLOWUP: 1. Follow up with PCP. 2. Follow up with Dr. Escalante in 1 week. 3. Follow up with [facility] in 2 days as previously scheduled. Dictated By: RACHEL BASS/NTS Conf#: [id number] DID#: [id number] CC: MUNIR ESCALANTE MD;*EndCC*
--- NOTE | 2019-04-28 01:35 | CONS ---
Assessment/Plan Assessment/Plan Assessment/Plan (Daily) 1. Severe hyponatremia likely due to Hypervolemic hyponatremia from decompensated Liver cirrhosis 2. SIADH 3. 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 symptomatic ascites 5. Anemia of CKD Plan: Na improved to 130 with 3 % saline, continue Na chloriee tablet and Ramses clocycline for SIADH ok to d/c nachoht outpatient nephrology follow up will zackery fragoso Consultation Date/Type/Reason Admit Date/Time Apr 25, 2019 at 23:32 Initial Consult Date 04/26/19 Type of Consult NEPHROLOGY Requesting Provider: RACHEL WIGGINS MD Date/Time of Note DATE: 04/27/2019 Exam/Review of Systems Exam Vitals Vital Signs Date Temp Pulse Resp B/P (MAP) Pulse Ox O2 O2 Flow FiO2 Time Delivery Rate 04/27/19 99 16:57 04/27/19 97.8 18 102/56 100 15:34 (71) 04/26/19 Room Air 13:54 04/25/19 2 22:49 Results Result Diagram: 04/27/19 0554 04/27/19 0554 Results 24hrs Laboratory Tests Test 04/27/19 05:54 White Blood Count 8.8 Red Blood Count 3.34 L Hemoglobin 10.2 L Hematocrit 29.2 L Mean Corpuscular Volume 87.4 Mean Corpuscular Hemoglobin 30.5 Mean Corpuscular Hemoglobin Concent 34.9 Red Cell Distribution Width 14.6 H Platelet Count 280 Mean Platelet Volume 8.7 Immature Granulocytes % 0.600 H Neutrophils % 66.4 Lymphocytes % 23.2 Monocytes % 9.3 Eosinophils % 0.2 Basophils % 0.3 Nucleated Red Blood Cells % 0.0 Immature Granulocytes # 0.050 H Neutrophils # 5.8 Lymphocytes # 2.0 Monocytes # 0.8 Eosinophils # 0.0 Basophils # 0.0 Nucleated Red Blood Cells # 0.0 Sodium Level 130 L Potassium Level 3.6 Chloride Level 102 Carbon Dioxide Level 21 Anion Gap 7 Blood Urea Nitrogen 11 Creatinine 0.81 Est Glomerular Filtrat Rate mL/min > 60 Glucose Level 84 Calcium Level 8.7 MUNIR ESCALANTE MD Apr 28, 2019 01:35
== END 2019-04-27 19:30 | disposition home health service (06) ==
LOC: E/R 21:57 → TEL 23:32 → CANRESERV 04-26 07:24
PROVIDERS: ADMIT Internal Medicine; ATTEND Internal Medicine
DX: E87.1 Hypo-osmolality and hyponatremia (principal); K70.40 Alcoholic hepatic failure without coma; K70.31 Alcoholic cirrhosis of liver with ascites; N18.9 Chronic kidney disease, unspecified; D63.1 Anemia in chronic kidney disease
CPT/HCPCS: 36415; 49083; 70450; 71045; 80048; 80053; 80307; 81001; 82140; 82962; 83605; 84295; 84484; 85025; 85610; 87081; 87086; 93005; 99285; G0378